=== PATIENT | male | born 1980 | race Caucasian/White ===

== ENCOUNTER 2019-06-05 06:13 | Day surgery (SDC) | payer OTHER, SELFPAY ==
[2019-05-24 11:54] VITALS: BMI 34.4
[2019-06-05] VITALS (10 sets, daily range): BP systolic 90–121; BP diastolic 60–81; PULSE 75–81; RESP 15–17; TEMP 35.9–36.3; O2SAT 90–97; BMI 32.8
[2019-06-05] MEDS: LACTATED RINGERS 1,000 ML 100 ML IV (07:30)
--- NOTE | 2019-06-05 07:48 | PM.HP.1 ---
History of Present Illness Date Patient Seen: 06/05/19 Time Patient Seen: 07:35 Chief complaint: [id number] Narrative: Pt seen and examined unchanged since recent clinic note plan for umbilical hernia repair with mesh Patient History Medical History (Updated 05/24/19 @ 12:02 by Elizabeth Sanchez RN) Diverticulosis (Acute) Nephrolithiasis (Acute) Obesity (Acute) Surgical History (Updated 05/24/19 @ 12:02 by Elizabeth Sanchez RN) History of colonoscopy (Acute) History of tonsillectomy (Acute) Social History (Updated 05/20/19 @ 14:29 by Angelia Lopez MA) marital status: household members: spouse Smoking Status: Current every day smoker alcohol intake: current substance use type: does not use Family & Social History Social History: household members spouse Tobacco & Substance use: Smoking Status Current every day smoker Smoking packs per day 1 alcohol intake current Substance Use Type does not use Meds Home Medications Medication Instructions Recorded Confirmed Type ranitidine HCl 75 mg PO PRN PRN #0 02/01/17 06/05/19 History Allergies Allergy/AdvReac Type Severity Reaction Status Date / Time Penicillins [PENICILLINS] Allergy Intermediate Verified 06/05/19 07:12 Exam Vital Signs (past 8 hours): - 06/05/19 07:19 Temperature 97.2 F L Pulse Rate 77 Respiratory Rate 15 Blood Pressure 119/81 Pulse Oximetry 96 Oxygen Delivery Method Room Air
[2019-06-05] MEDS: CEFAZOLIN 2 GM/100 ML FROZ.PIGGY IV (07:50)
--- NOTE | 2019-06-05 08:08 | SUR.OPER ---
Supine on padded OR bed, head on pillow, arms secured on padded arm boards at <90 degrees abduction, legs uncrossed, safety belt at thigh, tape over blanket over lower legs.
[2019-06-05] MEDS: BUPIVACAINE 0.25% W/ EPI 30 ML VIAL INJ (08:12)
[2019-06-05] MEDS: VANCOMYCIN 1,000 MG VIAL 1000 MG TOP (08:14)
--- NOTE | 2019-06-05 09:01 | SUR.PHASEI ---
Recieved pt, oral airway in, 02 added via nasal cannula
--- NOTE | 2019-06-05 09:04 | SUR.PHASEI ---
IV open for low BP
[2019-06-05] MEDS: fentaNYL 100 MCG/2 ML INJ 50 MCG IV ×2 (09:18→09:30)
--- NOTE | 2019-06-05 09:28 | P.OP_ITS ---
Operative Date/Time/Diagnoses Date of procedure: 06/05/19 Time of procedure: 09:21 Pre-op diagnosis: Umbilical hernia Post-op diagnosis: same Procedure & Clinicians Procedure: Open umbilical hernia repair with preperitoneal mesh placement Same procedure as scheduled: Yes Surgeon: Eugene Serrano Click Yes if Unassisted: Yes Anesthesia Type: General Operative Notes Findings: Herniated preperitoneal fat with a 1.5 x 1.5 cm umbilical defect Closure Type: primary Specimen(s): none sent Prosthetic devices, grafts, tissues, transplants, or devices: Atrial umbilical mesh Estimated Blood Loss (mL): 5 Procedure in detail: The patient was brought to the operating room he was given a general anesthetic with LMA without difficulty. He was prepped and draped in usual sterile fashion time-out was completed. A small curvilinear incision was performed on the superior umbilical crown. This carried through the skin down to the subcutaneous tissue. The umbilical stalk was circumferentially dissected around and then detached from the deep fascia. Quite obviously there was a c ollection of herniated preperitoneal fat. The fascial ring was identified and skeletonized. The herniated fat was then reduced through the defect. The edges of the fascial ring were then grasped with Allis clamps and elevated. In the preperitoneal plane I created a pocket just deep to the posterior fashion with a combination of finger dissection as well as Bovie dissection of several fibrous strands. I ensured the pocket was well-developed several cm in all directions. A Ray-Gabriele was then placed in the pocket left for 30 seconds and then removed. There was no significant blood in the Ray-Gabriele confirming hemostasis within the dissection pocket. At this point a 1.7 x 1.7 inch piece of polypropylene mesh was placed into the pocket I ensured that it was well approximating the posterior fact with no wrinkles. Prior to placement was soaked in vancomycin solution. I then proceeded to close the umbilical defect using interrupted 0 PDS suture in a horizontal fashion. The tails of the umbilical hernia mesh were incorporated into several the stitches to prevent migration. At this point the umbilical stalk was reapproximated over the repair using Vicryl stitch. Local anesthetic was infiltrated into the tissues. Skin was closed using a deep dermal layer of 2 0 Vicryl and monofilament absorbable suture in a subcuticular layer. Skin glue was applied. Patient was extubated and brought to PACU without incident Complications: none Condition: stable Disposition: PACU Plan for aftercare: PACU then home
== END 2019-06-05 10:23 | disposition home or self-care (01) ==
PROVIDERS: PCP Family Medicine; Visit Provider Surgery
PROC: (CPT 49585; principal; 2019-06-05 07:45)
DX: K42.9 Umbilical hernia without obstruction or gangrene (principal); F17.210 Nicotine dependence, cigarettes, uncomplicated; E66.9 Obesity, unspecified
CPT/HCPCS: 49585; C1781; J0690; J1100; J1885; J2250; J2405; J2704; J3010

== ENCOUNTER → 2020-04-07 09:49 | Outpatient (CLI) | payer OTHER, SELFPAY ==
--- NOTE | 2020-04-07 | DI.RAD.S_ITS ---
PROCEDURE: XR KNEE LT 3V INDICATIONS: Left knee pain TECHNIQUE: 3 views of the knee were acquired. COMPARISON: None. FINDINGS: Bones: No fractures or dislocations. No suspicious bony lesions. Soft tissues: No joint effusion. No suspicious soft tissue calcifications. IMPRESSION: Source of left knee pain is not seen. Dictated by: Sarath Wyatt M.D. on 04/07/2020 at 10:18 Approved by: Sarath Wyatt M.D. on 04/07/2020 at 10:33
== END ==
PROVIDERS: PCP Family Medicine; Referring Provider Family Medicine; Visit Provider Family Medicine
DX: M25.562 Pain in left knee (principal)
CPT/HCPCS: 73562

== ENCOUNTER 2020-06-18 14:58 | Emergency (ER) | payer OTHER, SELFPAY ==
[2020-06-18 15:08] VITALS: BP 142/67; PULSE 74; RESP 16; TEMP 36.4; O2SAT 98; BMI 34.4
--- NOTE | 2020-06-18 15:18 | DI.CT.S_ITS ---
PROCEDURE: CT HEAD/BRAIN WO CON INDICATIONS: Sudden onset of dizziness TECHNIQUE: Noncontrast 4.5 mm thick angled axial sections acquired from the foramen magnum to the vertex, with coronal and sagittal reformats. For radiation dose reduction, the following was used: automated exposure control, adjustment of mA and/or kV according to patient size. COMPARISON: None. FINDINGS: Image quality: Excellent. CSF spaces: Basal cisterns are patent. No extra-axial fluid collections. Ventricles are normal in size and shape. Brain: No midline shift. No intracranial masses or hemorrhage. Bragg-white matter interface is normal. Skull and face: Calvarium and visualized facial bones are intact, without suspicious lesions. Sinuses: Visualized sinuses and mastoids are clear. IMPRESSION: Normal head CT exam. Dictated by: Gisselle Arango M.D. on 06/18/2020 at 15:32 Approved by: Gisselle Arango M.D. on 06/18/2020 at 15:33
[2020-06-18 16:19] LABS: Alanine Aminotransferase 32 IU/L (<50); Albumin 4.3 g/dL (3.5-5.0); Albumin Globulin Ratio 1.5 (1.0-2.8); Alkaline Phosphatase 85 U/L (38-126); Aspartate Aminotransferase 35 IU/L (17-59); BUN Creatinine Ratio 11.1 (6-22); Bilirubin Total 0.4 mg/dL (0.2-1.3); Blood Urea Nitrogen 8 mg/dL (9-20); Calcium 9.1 mg/dL (8.4-10.2); Carbon Dioxide 24 mmol/L (22-32); Chloride 105 mmol/L (98-107); Estimated Glomerular Filt Rate > 60.0 mL/min (>60); Globulin 2.9 g/dL (1.7-4.1); Glucose 90 mg/dL (70-100); HEMOLYSIS 20 (0-50); Potassium 3.8 mmol/L (3.4-5.1); Sodium 137 mmol/L (137-145); Total Protein 7.2 g/dL (6.3-8.2)
[2020-06-18 16:28] LABS: Troponin I < 0.012 ng/mL (0.01-0.034)
[2020-06-18 16:54] LABS: Add Manual Diff / Slide Review NO; Basophils Absolute Auto 200 /uL (0-100); Basophils Percent Auto 1.4 % (0-2); Eosinophils Absolute Auto 200 /uL (0-450); Eosinophils Percent Auto 1.3 % (2-4); Hematocrit 44.8 % (41-53); Hemoglobin 15.4 g/dL (13.5-17.5); Lymphocytes Absolute Auto 3700 /uL (1100-4500); Mean Corpuscular HGB Conc 34.3 % (30-36); Mean Corpuscular Hemoglobin 31.4 PG (26-34); Mean Corpuscular Volume 91.4 fL (80-100); Monocytes Absolute Auto 800 /uL (0-900); Monocytes Percent Auto 6.5 % (3-14); Neutrophils Absolute Auto 7400 /uL (1500-7000); Neutrophils Percent Auto 60.8 % (50-75); Platelet Count 229 X10^3/uL (150-400); White Blood Cell Count 12.2 X10^3/uL (4.5-11.0)
[2020-06-18 17:48] VITALS: BP 124/71; PULSE 68; RESP 16; O2SAT 97
[2020-06-18] MEDS: MECLIZINE HCL 12.5 MG TABLET 50 MG PO (18:09)
--- NOTE | 2020-06-18 18:52 | ED_ITS ---
HPI - Dizziness <NENA Alvarez-BC - Last Filed: 06/18/20 18:59> General Chief Complaint: Dizziness Stated Complaint: dizzy and lightheaded Time Seen by Provider: 06/18/20 17:28 Source: patient Mode of arrival: Ambulatory Limitations: no limitations History of Present Illness HPI Narrative: The patient is a 39-year-old male current smoker who denies pertinent medical history presents with a chief complaint of sudden onset of dizziness this afternoon approximately 13 30. He states he was at work. He states that he has a spinning sensation whenever he moves his head or changes position. He denies any dizziness or spinning sensation when he is lying still. Denies any ear pain. Denies any fever, nausea vomiting or diarrhea. Denies any abdominal pain chest pain shortness of breath or cough. He has not taken anything to feel better. He denies any falls or trauma. Related Data Home Medications Medication Instructions Recorded Confirmed ranitidine HCl 75 mg PO PRN PRN #0 02/01/17 06/18/19 Previous Rx's Medication Instructions Recorded acetaminophen 1,000 mg PO Q6H #30 cap 06/05/19 oxycodone See Rx Instructions .ROUTE 06/05/19 .COMPLEX PRN #10 tab polyethylene glycol 3350 [Miralax] 17 gram PO DAILY #10 each 06/05/19 meclizine 25 mg PO TID PRN #14 tab 06/18/20 Allergies Allergy/AdvReac Type Severity Reaction Status Date / Time Penicillins [PENICILLINS] Allergy Intermediate Verified 06/18/20 15:12 Review of Systems <JESSENIA Alvarez - Last Filed: 06/18/20 18:59> Review of Systems Narrative: GENERAL: Denies chills, fatigue, malaise, fever, sweats. HEENT: Denies sinus pain, ear pain, sore throat, difficulty swallowing, dizziness. RESPIRATORY: Denies dyspnea, cough, wheezing, hemoptysis, sputum. CARDIOVASCULAR: Denies chest pain, palpitations, orthopnea, edema, GASTROINTESTINAL: Denies nausea, vomiting, abdominal pain, diarrhea, constipation, melena. : Denies dysuria, frequency, incontinence, hematuria, urinary retention. MUSCULOSKELETAL: denies weakness, joint pain, or bony pain SKIN: Denies rash, skin lesions, or other NEUROLOGIC: See HPI PSYCHIATRIC: No concerning psychosocial issues. 12 point review of systems is negative except for those stated above Patient History <YESSICA Alvarez - Last Filed: 06/18/20 18:59> Medical History (Updated 06/18/20 @ 18:43 by YESSICA Alvarez) Diverticulosis (Acute) Nephrolithiasis (Acute) Obesity (Acute) Surgical History (Updated 05/24/19 @ 12:02 by Elizabeth Sanchez RN) History of colonoscopy (Acute) History of tonsillectomy (Acute) Social History (Updated 05/20/19 @ 14:29 by Angelia Lopez MA) marital status: household members: spouse Smoking Status: Current every day smoker alcohol intake: current substance use type: does not use Smoking Status: Current every day smoker Substance Use Type: does not use Exam <YESSICA Alvarez - Last Filed: 06/18/20 18:59> Narrative Exam Narrative: GENERAL: This is a well-nourished, well-developed patient, no acute distress HEAD: Atraumatic. Normocephalic. No temporal or scalp tenderness. EYES: Pupils equal round and reactive. Extraocular motions intact. No scleral icterus. No injection or drainage. Slight horizontal nystagmus bilaterally. ENT: Nose without bleeding, purulent drainage or septal hematoma. Throat without erythema, tonsillar hypertrophy or exudate. Uvula midline. Airway patent. NECK: Trachea midline. No JVD or lymphadenopathy. Supple, nontender, no meningeal signs. CARDIOVASCULAR: Regular rate and rhythm RESPIRATORY: Clear to auscultation. Breath sounds equal bilaterally. No wheezes, rales, or rhonchi. No cough. No increased respiratory effort. No accessory muscle use. GASTROINTESTINAL: Abdomen soft, non-tender, nondistended. No hepato- splenomegaly, or palpable masses. No guarding. EXTREMITIES: No clubbing, cyanosis, or edema. No joint tenderness, effusion, or edema noted. BACK: Nontender without deformity or crepitance. No flank tenderness. NEURO: AOx3. NIH 0. SKIN: No rash or erythema. Initial Vital Signs Initial Vital Signs: Vital Signs Temperature 97.6 F 06/18/20 15:08 Pulse Rate 74 06/18/20 15:08 Respiratory Rate 16 06/18/20 15:08 Blood Pressure 142/67 H 06/18/20 15:08 Pulse Oximetry 98 06/18/20 15:08 <Vincenzo Martin MD - Last Filed: 06/19/20 08:05> Initial Vital Signs Initial Vital Signs: Vital Signs Temperature 97.6 F 06/18/20 15:08 Pulse Rate 74 06/18/20 15:08 Respiratory Rate 16 06/18/20 15:08 Blood Pressure 142/67 H 06/18/20 15:08 Pulse Oximetry 98 06/18/20 15:08 Scores <YESSICA Alvarez - Last Filed: 06/18/20 18:59> GCS Ángela coma scale eye opening: Spontaneous [place] coma scale verbal response: Orientated [place] coma scale motor response: Obey commands [place] coma scale total score: 15 NIH Stroke Scale Level of Conciousness: Alert, keenly responsive Ask month/age: Answers both questions correctly. Open/close eyes, close hand: Performs both tasks correctly Best gaze horizontal: Normal Visual gacria: No visual loss Facial palsy: Normal symetrical movement Left arm drift: No drift for full 10 sec Right arm drift: No drift for full 10 sec Left leg drift: No drift for full 10 sec Right leg drift: No drift for full 10 sec Limb ataxia: Absent Sensory on face/arms/legs: Normal, no sensory loss Best language: No aphasia, normal Dysarthria: Normal Extinction or inattention: No abnormality Total NIH Stroke scale score: 0 Course <YESSICA Alvarez - Last Filed: 06/18/20 18:59> Orders Ordered: Discontinued Medications Meclizine HCl (Antivert) 50 mg PO NOW ONE Stop: 06/18/20 17:50 Last Admin: 06/18/20 18:09 Dose: 50 mg Documented by: MUKUL Vital Signs Vital signs: Vital Signs - 8 hr 06/18/20 15:08 06/18/20 17:48 Temperature 97.6 F Pulse Rate 74 68 Respiratory Rate 16 16 Blood Pressure 142/67 H 124/71 Pulse Oximetry 98 97 <Vincenzo Martin MD - Last Filed: 06/19/20 08:05> Orders Ordered: Discontinued Medications Meclizine HCl (Antivert) 50 mg PO NOW ONE Stop: 06/18/20 17:50 Last Admin: 06/18/20 18:09 Dose: 50 mg Documented by: MUKUL Vital Signs Vital signs: Vital Signs - 8 hr 06/18/20 15:08 06/18/20 17:48 Temperature 97.6 F Pulse Rate 74 68 Respiratory Rate 16 16 Blood Pressure 142/67 H 124/71 Pulse Oximetry 98 97 MDM - Dizziness <Angela McgillKRISTINAP-BC - Last Filed: 06/18/20 18:59> Lab Data Result diagrams: 06/18/20 15:46 06/18/20 15:50 Labs: Lab Results 06/18/20 06/18/20 Range/Units 15:46 15:50 WBC 12.2 H (4.5-11.0) X10^3/uL RBC 4.90 (4.5-5.9) X10^6/uL Hgb 15.4 (13.5-17.5) g/dL Hct 44.8 (41-53) % MCV 91.4 (80-100) fL MCH 31.4 (26-34) PG MCHC 34.3 (30-36) % RDW 13.0 (11.6-14.8) % Plt Count 229 (150-400) X10^3/uL Neut % (Auto) 60.8 (50-75) % Lymph % (Auto) 30.0 (25-40) % Garden % (Auto) 6.5 (3-14) % Eos % (Auto) 1.3 L (2-4) % Baso % (Auto) 1.4 (0-2) % Neut # (Auto) 7400 H (9504-3104) /uL Lymph # (Auto) 3700 (0220-6015) /uL Garden # (Auto) 800 (0-900) /uL Eos # (Auto) 200 (0-450) /uL Baso # (Auto) 200 H (0-100) /uL Sodium 137 (137-145) mmol/L Potassium 3.8 (3.4-5.1) mmol/L Chloride 105 (98-107) mmol/L Carbon Dioxide 24 (22-32) mmol/L BUN 8 L (9-20) mg/dL Creatinine 0.72 (0.66-1.25) mg/dL Estimated GFR > 60.0 (>60) mL/min BUN/Creatinine Ratio 11.1 (6-22) Glucose 90 (70-100) mg/dL Calcium 9.1 (8.4-10.2) mg/dL Magnesium 2.0 (1.6-2.3) mg/dL Total Bilirubin 0.4 (0.2-1.3) mg/dL AST 35 (17-59) IU/L ALT 32 (<50) IU/L Alkaline Phosphatase 85 (38-126) U/L Troponin I < 0.012 (0.01-0.034) ng/mL Total Protein 7.2 (6.3-8.2) g/dL Albumin 4.3 (3.5-5.0) g/dL Globulin 2.9 (1.7-4.1) g/dL Albumin/Globulin Ratio 1.5 (1.0-2.8) Urine Dip Bedside Urine Glucose 100 mg/dl Bedside Urine Bilirubin - Negative Bedside Urine Ketone - Negative Urine Specific [place] 1.010 Bedside Urine Occult Blood - Negative Bedside Urine pH 7.0 Bedside Urine Protein - Negative Bedside Urine Urobilinogen - Negative Bedside Urine Nitrite - Negative Bedside Urine Leukocytes - Negative Esterase Imaging Data CT scan - head: Radiologist's Impression: [address] [place] [address] CT Scan Report Signed Patient: Alex Wagoner#: [id number] : 1980Acct:[id number] Age/Sex: 39 / MDate of Service: 06/18/20 Loc: ED Accession Number: [id number] Procedure: CT head/brain wo con Ordering Provider: Angela Mcgill [facility] PROCEDURE: CT HEAD/BRAIN WO CON INDICATIONS: Sudden onset of dizziness TECHNIQUE: Noncontrast 4.5 mm thick angled axial sections acquired from the foramen magnum to the vertex, with coronal and sagittal reformats. For radiation dose reduction, the following was used: automated exposure control, adjustment of mA and/or kV according to patient size. COMPARISON: None. FINDINGS: Image quality: Excellent. CSF spaces: Basal cisterns are patent. No extra-axial fluid collections. Ventricles are normal in size and shape. Brain: No midline shift. No intracranial masses or hemorrhage. Bragg-white matter interface is normal. Skull and face: Calvarium and visualized facial bones are intact, without suspicious lesions. Sinuses: Visualized sinuses and mastoids are clear. IMPRESSION: Normal head CT exam. Dictated by: Gisselle Arango M.D. on 06/18/2020 at 15:32 Approved by: Gisselle Arango M.D. on 06/18/2020 at 15:33 [facility] Narrative Medical decision making narrative: The patient is a 39-year-old male who presents with a chief complaint of sudden onset of spinning sensation when he moves his head this afternoon early. He has a GCS 15, NIH is 0, normal head CT. His labs are grossly normal. Given his exam and history, this correlates with vertigo. He did feel slightly improved after a dose of meclizine so I sent a minute prescription. Discussed at length the importance of following up with primary care provider, as well as come back to the emergency department for any acute concerns such as chest pain, shortness of breath, concern of heart attack or stroke. Patient has no questions or concerns upon discharge and states understanding return precautions as well as follow-up care. Was discharged home with . <Vincenzo Martin MD - Last Filed: 06/19/20 08:05> Lab Data Labs: Lab Results 06/18/20 06/18/20 Range/Units 15:46 15:50 WBC 12.2 H (4.5-11.0) X10^3/uL RBC 4.90 (4.5-5.9) X10^6/uL Hgb 15.4 (13.5-17.5) g/dL Hct 44.8 (41-53) % MCV 91.4 (80-100) fL MCH 31.4 (26-34) PG MCHC 34.3 (30-36) % RDW 13.0 (11.6-14.8) % Plt Count 229 (150-400) X10^3/uL Neut % (Auto) 60.8 (50-75) % Lymph % (Auto) 30.0 (25-40) % Garden % (Auto) 6.5 (3-14) % Eos % (Auto) 1.3 L (2-4) % Baso % (Auto) 1.4 (0-2) % Neut # (Auto) 7400 H (7537-8830) /uL Lymph # (Auto) 3700 (6997-5020) /uL Garden # (Auto) 800 (0-900) /uL Eos # (Auto) 200 (0-450) /uL Baso # (Auto) 200 H (0-100) /uL Sodium 137 (137-145) mmol/L Potassium 3.8 (3.4-5.1) mmol/L Chloride 105 (98-107) mmol/L Carbon Dioxide 24 (22-32) mmol/L BUN 8 L (9-20) mg/dL Creatinine 0.72 (0.66-1.25) mg/dL Estimated GFR > 60.0 (>60) mL/min BUN/Creatinine Ratio 11.1 (6-22) Glucose 90 (70-100) mg/dL Calcium 9.1 (8.4-10.2) mg/dL Magnesium 2.0 (1.6-2.3) mg/dL Total Bilirubin 0.4 (0.2-1.3) mg/dL AST 35 (17-59) IU/L ALT 32 (<50) IU/L Alkaline Phosphatase 85 (38-126) U/L Troponin I < 0.012 (0.01-0.034) ng/mL Total Protein 7.2 (6.3-8.2) g/dL Albumin 4.3 (3.5-5.0) g/dL Globulin 2.9 (1.7-4.1) g/dL Albumin/Globulin Ratio 1.5 (1.0-2.8) Urine Dip Bedside Urine Glucose 100 mg/dl Bedside Urine Bilirubin - Negative Bedside Urine Ketone - Negative Urine Specific [place] 1.010 Bedside Urine Occult Blood - Negative Bedside Urine pH 7.0 Bedside Urine Protein - Negative Bedside Urine Urobilinogen - Negative Bedside Urine Nitrite - Negative Bedside Urine Leukocytes - Negative Esterase Discharge Plan Departure Patient Disposition: Home Clinical Impression: Vertigo Discharge Date/Time: 06/18/20 19:00 Instructions: DI for Vertigo Activity Restrictions/Additional Instructions: Thank you for trusting us with your care today Your labs came back well, your head CT came back well Please follow-up with primary care provider in the next few days I sent a prescription of meclizine to [facility]. I have given you a work note case you needed. Please stay home, push fluids and rest Please come back to emergency department for any acute concerns Prescriptions: New meclizine 25 mg tablet 25 mg PO TID PRN (Reason: dizziness) Qty: 14 RF: 0 No Action ranitidine HCl 75 MG tablet 75 mg PO PRN PRN (Reason: Indigestion) Qty: 0 RF: 0 acetaminophen 500 mg capsule 1,000 mg PO Q6H Qty: 30 RF: 0 oxycodone 5 mg tablet See Rx Instructions .ROUTE .COMPLEX PRN (Reason: pain) Qty: 10 RF: 0 polyethylene glycol 3350 [Miralax] 17 gram powder in packet 17 gram PO DAILY Qty: 10 RF: 0 Referrals: Susana Wilson MD [Primary Care Provider] - Stand Alone Forms: Work Release Note
== END 2020-06-18 19:00 | disposition home or self-care (01) ==
PROVIDERS: Emergency Provider Nurse Practitioner Family; PCP Family Medicine
DX: R42 Dizziness and giddiness (principal); R07.9 Chest pain, unspecified
CPT/HCPCS: 36415; 70450; 80053; 81003; 83735; 84484; 85025; 93005; 99284

== ENCOUNTER 2020-06-25 14:10 | Emergency (ER) | payer OTHER, SELFPAY ==
[2020-06-25] VITALS (7 sets, daily range): BP systolic 119–135; BP diastolic 73–93; PULSE 61–81; RESP 18–22; TEMP 36.5; O2SAT 96–98; BMI 34.4
--- NOTE | 2020-06-25 14:32 | ED.DIZZY ---
HPI - Dizziness <Susana Haque PA-C - Last Filed: 06/25/20 23:27> General Chief Complaint: Dizziness Stated Complaint: dizzy, loss of balance Time Seen by Provider: 06/25/20 14:32 Source: patient and family Mode of arrival: Wheelchair Limitations: no limitations History of Present Illness HPI Narrative: This is a very uncomfortable appearing 39-year-old with a recent emergency department visit for vertigo who presents to the emergency department today complaining of dizziness and difficulty walking as well as a mild headache. He had been taking meclizine and doing well after his visit about a week ago, with some occasional spells of dizziness returning, yesterday he spent most of the day sitting in the car while his child was in an appointment with his , today when he woke up in the morning he was having worsening dizziness again, he felt like his vision was affected and has difficulty focusing on things, he has a mild headache today in the back of his head. He called his primary care and they advised him to double his dose and take 50 of meclizine, however this did not relieve his symptoms so he came to the emergency department. He has not sustained any recent trauma, he has not had any new symptoms since his symptoms began a week ago. He did have a follow-up appointment with his primary care doctor on Monday, and they noted that he appeared to have an ear infection on the right and prescribed him antibiotics. They also noted that he had elevated white count. His notes that his mother was diagnosed with brain cancer in her 40s and their daughter currently has brain cancer and [facility] He denies eye pain, severe headache, trauma, fever, chills, N/V/D, new or worsening neck or back pain, unilateral weakness or any other symptoms. MD complaint: dizziness and difficulty walking Onset (ago): week(s) (1) Timing: gradual onset Description: room spinning and difficulty walking (due to dizziness) History of similar episodes: Yes History of trauma: No Severity: similar to previous episodes Relieving factors: remaining still Exacerbating factors: movement and position Associated symptoms: denies other symptoms, vision changes (hard to focus on objects) and nausea Related Data Home Medications Medication Instructions Recorded Confirmed ranitidine HCl 75 mg PO PRN PRN #0 02/01/17 06/18/19 Previous Rx's Medication Instructions Recorded acetaminophen 1,000 mg PO Q6H #30 cap 06/05/19 oxycodone See Rx Instructions .ROUTE 06/05/19 .COMPLEX PRN #10 tab polyethylene glycol 3350 [Miralax] 17 gram PO DAILY #10 each 06/05/19 meclizine 25 mg PO TID PRN #14 tab 06/18/20 ondansetron HCl [Zofran] 4 mg PO Q6H #14 tab 06/25/20 Allergies Allergy/AdvReac Type Severity Reaction Status Date / Time Penicillins [PENICILLINS] Allergy Intermediate Verified 06/18/20 15:12 Review of Systems <Susana Haque PA-C - Last Filed: 06/25/20 23:27> Review of Systems Narrative: GENERAL: Denies chills, fatigue, malaise, fever, sweats. HEENT: Denies sinus pain, ear pain, sore throat, difficulty swallowing, positive for dizziness. RESPIRATORY: Denies dyspnea, cough, wheezing, hemoptysis, sputum. CARDIOVASCULAR: Denies chest pain, palpitations, orthopnea, edema, GASTROINTESTINAL: Positive for nausea, negative for vomiting, abdominal pain, diarrhea, constipation, melena. : Denies dysuria, frequency, incontinence, hematuria, urinary retention. MUSCULOSKELETAL: denies weakness, joint pain, or bony pain; positive for chronic neck and back pain SKIN: Denies rash, skin lesions, or other NEUROLOGIC: Denies weakness, positive for mild headache, negative for numbness, change in speech, confusion, seizures, incoordination. PSYCHIATRIC: No concerning psychosocial issues. 12 point review of systems is negative except for those stated above ROS Unobtainable: All systems reviewed & are unremarkable except as noted in HPI and below Patient History <Susana Haque PA-C - Last Filed: 06/25/20 23:27> Medical History Diverticulosis (Acute) Nephrolithiasis (Acute) Obesity (Acute) Surgical History History of colonoscopy (Acute) History of tonsillectomy (Acute) Social History marital status: household members: spouse Smoking Status: Current every day smoker alcohol intake: current substance use type: does not use Smoking Status: Current every day smoker Substance Use Type: does not use Exam <Susana Haque PA-C - Last Filed: 06/25/20 23:27> Narrative Exam Narrative: GENERAL: 39 year old patient appears stated age. Well-nourished, well-developed patient, in mild distress. HEAD: Atraumatic. Normocephalic. EYES: Pupils equal round and reactive, consensual reflex intact. Extraocular motions intact, there is significant slow beat nystagmus horizontal gaze on the right and vertical gaze on the right. No scleral icterus. No injection or drainage. ENT: Nose without bleeding, purulent drainage. Throat without erythema, tonsillar hypertrophy or exudate. Airway patent. External ear canals are normal in appearance bilaterally without drainage or erythema, the left tympanic number membrane is normal in appearance, the right tympanic membrane is injected and moderately erythematous. There is no effusion. NECK: Trachea midline. Non tender CARDIOVASCULAR: Regular rate and rhythm without murmurs, gallops, or rubs. RESPIRATORY: Clear to auscultation. Breath sounds equal bilaterally. No wheezes, rales, or rhonchi. GASTROINTESTINAL: Abdomen soft, non-tender, nondistended. EXTREMITIES: No edema or joint tenderness. BACK: Nontender without deformity or crepitance. No flank tenderness. NEURO: AOx3. Cranial nerves are intact. Coordination is intact but [id number] is slow. Heel to dodd is normal, no arm drift. SKIN: No rash or erythema of visible areas Initial Vital Signs Initial Vital Signs: Vital Signs Temperature 97.7 F 06/25/20 14:22 Pulse Rate 69 06/25/20 14:22 Respiratory Rate 06/25/20 14:22 Blood Pressure 126/75 06/25/20 14:22 Pulse Oximetry 96 06/25/20 14:22 <Satish Hernandez MD - Last Filed: 07/06/20 17:54> Initial Vital Signs Initial Vital Signs: Vital Signs Temperature 97.7 F 06/25/20 14:22 Pulse Rate 69 06/25/20 14:22 Respiratory Rate 06/25/20 14:22 Blood Pressure 126/75 06/25/20 14:22 Pulse Oximetry 96 06/25/20 14:22 Scores <Susana Haque PA-C - Last Filed: 06/25/20 23:27> GCS [place] coma scale eye opening: Spontaneous Ángela coma scale verbal response: Orientated Ángela coma scale motor response: Obey commands Ángela coma scale total score: 15 NIH Stroke Scale Level of Conciousness: Alert, keenly responsive Ask month/age: Answers both questions correctly. Open/close eyes, close hand: Performs both tasks correctly Best gaze horizontal: Normal Visual garcia: No visual loss Facial palsy: Normal symetrical movement Left arm drift: No drift for full 10 sec Right arm drift: No drift for full 10 sec Left leg drift: No drift for full 10 sec Right leg drift: No drift for full 10 sec Limb ataxia: Absent Sensory on face/arms/legs: Normal, no sensory loss Best language: No aphasia, normal Dysarthria: Normal Extinction or inattention: No abnormality Total NIH Stroke scale score: 0 Course <Susana Haque PA-C - Last Filed: 06/25/20 23:27> Course Course Narrative: Did speak with Dr. Moore, ED attending about this patient in the fact that he had been here about a week ago and had a head CT that was negative at that time. Discussed the elevated white count the fact that he just started antibiotics for possible ear infection, as well as details of his physical exam including his vertical and horizontal nystagmus on right. Dr. Hernandez advised to do a chest x-ray, check urine, check rapid strep, COVID, Monospot. 17:25 Orders Ordered: Discontinued Medications Sodium Chloride (Normal Saline 0.9%) 1,000 mls @ 1,000 mls/hr IV BOLUS ONE Stop: 06/25/20 17:28 Last Infusion: 06/25/20 18:03 Dose: 0 mls/hr Documented by: Admin: 06/25/20 16:32 Dose: 1,000 mls/hr Documented by: MAMTA Ondansetron HCl (Zofran) 4 mg IV NOW ONE Stop: 06/25/20 15:18 Last Admin: 06/25/20 15:27 Dose: 4 mg Documented by: MAMTA Prochlorperazine (Compazine) 5 mg IV NOW ONE Stop: 06/25/20 15:48 Last Admin: 06/25/20 16:02 Dose: 5 mg Documented by: MAMTA Vital Signs Vital signs: Vital Signs - 8 hr 06/25/20 15:26 06/25/20 16:02 06/25/20 17:05 Pulse Rate 67 61 Pulse Rate [Orthostatic Lying] 69 Pulse Rate [Orthostatic Sitting] 71 Pulse Rate [Orthostatic Standing] 81 Respiratory Rate 20 Blood Pressure 123/79 Blood Pressure [Orthostatic Lying] 126/80 Blood Pressure [Orthostatic Sitting] 130/87 Blood Pressure [Orthostatic Standing] 135/93 H Pulse Oximetry 96 06/25/20 18:05 06/25/20 18:29 06/25/20 18:30 Pulse Rate 61 73 Pulse Rate [Orthostatic Lying] Pulse Rate [Orthostatic Sitting] Pulse Rate [Orthostatic Standing] Respiratory Rate 18 22 Blood Pressure 119/73 123/76 Blood Pressure [Orthostatic Lying] Blood Pressure [Orthostatic Sitting] Blood Pressure [Orthostatic Standing] Pulse Oximetry 98 96 <Satish Hernandez MD - Last Filed: 07/06/20 17:54> Orders Ordered: Discontinued Medications Sodium Chloride (Normal Saline 0.9%) 1,000 mls @ 1,000 mls/hr IV BOLUS ONE Stop: 06/25/20 17:28 Last Infusion: 06/25/20 18:03 Dose: 0 mls/hr Documented by: Admin: 06/25/20 16:32 Dose: 1,000 mls/hr Documented by: MAMTA Ondansetron HCl (Zofran) 4 mg IV NOW ONE Stop: 06/25/20 15:18 Last Admin: 06/25/20 15:27 Dose: 4 mg Documented by: MAMTA Prochlorperazine (Compazine) 5 mg IV NOW ONE Stop: 06/25/20 15:48 Last Admin: 06/25/20 16:02 Dose: 5 mg Documented by: MAMTA Vital Signs Vital signs: Vital Signs - 8 hr 06/25/20 15:26 06/25/20 16:02 06/25/20 17:05 Pulse Rate 67 61 Pulse Rate [Orthostatic Lying] 69 Pulse Rate [Orthostatic Sitting] 71 Pulse Rate [Orthostatic Standing] 81 Respiratory Rate 20 Blood Pressure 123/79 Blood Pressure [Orthostatic Lying] 126/80 Blood Pressure [Orthostatic Sitting] 130/87 Blood Pressure [Orthostatic Standing] 135/93 H Pulse Oximetry 96 06/25/20 18:05 06/25/20 18:29 06/25/20 18:30 Pulse Rate 61 73 Pulse Rate [Orthostatic Lying] Pulse Rate [Orthostatic Sitting] Pulse Rate [Orthostatic Standing] Respiratory Rate 18 22 Blood Pressure 119/73 123/76 Blood Pressure [Orthostatic Lying] Blood Pressure [Orthostatic Sitting] Blood Pressure [Orthostatic Standing] Pulse Oximetry 98 96 MDM - Dizziness <Susana Haque PA-C - Last Filed: 06/25/20 23:27> Differential Diagnosis Differential diagnosis: Likely benign paroxysmal positional vertigo, orthostatic hypotension, vertebral basilar insufficiency, cerebrovascular accident, acute vestibular neuronitis and other (viral illness, otitis media, brain mass) Medical Records Attestation: I reviewed the patient's medical records. Lab Data Attestation: I reviewed the patient's lab results. Result diagrams: 06/25/20 14:44 06/25/20 14:44 Labs: Lab Results 06/25/20 06/25/20 06/25/20 Range/Units 14:44 14:44 14:44 WBC 15.3 H (4.5-11.0) X10^3/uL RBC 5.09 (4.5-5.9) X10^6/uL Hgb 16.0 (13.5-17.5) g/dL Hct 46.4 (41-53) % MCV 91.1 (80-100) fL MCH 31.3 (26-34) PG MCHC 34.4 (30-36) % RDW 12.7 (11.6-14.8) % Plt Count 226 (150-400) X10^3/uL Neut % (Auto) 67.2 (50-75) % Lymph % (Auto) 27.3 (25-40) % [place] % (Auto) 4.1 (3-14) % Eos % (Auto) 0.2 L (2-4) % Baso % (Auto) 1.2 (0-2) % Neut # (Auto) 97482 H (7684-5558) /uL Lymph # (Auto) 4200 (3030-5344) /uL [place] # (Auto) 600 (0-900) /uL Eos # (Auto) 0 (0-450) /uL Baso # (Auto) 200 H (0-100) /uL ESR (0-15) MM/HR Sodium 138 (137-145) mmol/L Potassium 4.1 (3.4-5.1) mmol/L Chloride 107 (98-107) mmol/L Carbon Dioxide 24 (22-32) mmol/L BUN 9 (9-20) mg/dL Creatinine 0.65 L (0.66-1.25) mg/dL Estimated GFR > 60.0 (>60) mL/min BUN/Creatinine Ratio 13.8 (6-22) Glucose 97 (70-100) mg/dL Lactate 0.8 (0.7-2.1) mmol/L Calcium 9.4 (8.4-10.2) mg/dL TSH (0.47-4.68) uIU/mL COVID-19 PCR (Not Detected) Monoscreen (Negative) 06/25/20 06/25/20 06/25/20 Range/Units 14:44 14:44 14:44 WBC (4.5-11.0) X10^3/uL RBC (4.5-5.9) X10^6/uL Hgb (13.5-17.5) g/dL Hct (41-53) % MCV (80-100) fL MCH (26-34) PG MCHC (30-36) % RDW (11.6-14.8) % Plt Count (150-400) X10^3/uL Neut % (Auto) (50-75) % Lymph % (Auto) (25-40) % [place] % (Auto) (3-14) % Eos % (Auto) (2-4) % Baso % (Auto) (0-2) % Neut # (Auto) (6589-5237) /uL Lymph # (Auto) (4504-3426) /uL [place] # (Auto) (0-900) /uL Eos # (Auto) (0-450) /uL Baso # (Auto) (0-100) /uL ESR 5 (0-15) MM/HR Sodium (137-145) mmol/L Potassium (3.4-5.1) mmol/L Chloride (98-107) mmol/L Carbon Dioxide (22-32) mmol/L BUN (9-20) mg/dL Creatinine (0.66-1.25) mg/dL Estimated GFR (>60) mL/min BUN/Creatinine Ratio (6-22) Glucose (70-100) mg/dL Lactate (0.7-2.1) mmol/L Calcium (8.4-10.2) mg/dL TSH 1.18 (0.47-4.68) uIU/mL COVID-19 PCR (Not Detected) Monoscreen Negative (Negative) 06/25/20 Range/Units 17:37 WBC (4.5-11.0) X10^3/uL RBC (4.5-5.9) X10^6/uL Hgb (13.5-17.5) g/dL Hct (41-53) % MCV (80-100) fL MCH (26-34) PG MCHC (30-36) % RDW (11.6-14.8) % Plt Count (150-400) X10^3/uL Neut % (Auto) (50-75) % Lymph % (Auto) (25-40) % [place] % (Auto) (3-14) % Eos % (Auto) (2-4) % Baso % (Auto) (0-2) % Neut # (Auto) (0704-2042) /uL Lymph # (Auto) (0730-3178) /uL [place] # (Auto) (0-900) /uL Eos # (Auto) (0-450) /uL Baso # (Auto) (0-100) /uL ESR (0-15) MM/HR Sodium (137-145) mmol/L Potassium (3.4-5.1) mmol/L Chloride (98-107) mmol/L Carbon Dioxide (22-32) mmol/L BUN (9-20) mg/dL Creatinine (0.66-1.25) mg/dL Estimated GFR (>60) mL/min BUN/Creatinine Ratio (6-22) Glucose (70-100) mg/dL Lactate (0.7-2.1) mmol/L Calcium (8.4-10.2) mg/dL TSH (0.47-4.68) uIU/mL COVID-19 PCR Not detected (Not Detected) Monoscreen (Negative) Point of Care Testing Rapid Strep A Negative Urine Dip Bedside Urine Glucose Negative Bedside Urine Bilirubin - Negative Bedside Urine Ketone - Negative Urine Specific Piru 1.010 Bedside Urine Occult Blood - Negative Bedside Urine pH 7.0 Bedside Urine Protein - Negative Bedside Urine Urobilinogen - Negative Bedside Urine Nitrite - Negative Imaging Data Chest x-ray: Attestation: I personally reviewed and interpreted this imaging study as follows: Radiologist's Impression: [facility] [address] [place] [id number] XRay Report Signed Patient: Alex WagonerMR#: [id number] : 1980Acct:[id number] Age/Sex: 39 / MDate of Service: 06/25/20 Loc: ED Accession Number: [id number] Procedure: XR chest 2V Ordering Provider: Susana Haque P.A-C PROCEDURE: XR CHEST 2V INDICATIONS: unexplained leukocytosis, dizziness TECHNIQUE: 2 views of the chest were acquired. COMPARISON: [facility], , CHEST 2 VIEW, 08/12/2009, 21:27. FINDINGS: Surgical changes and devices: None. Lungs and pleura: Lungs are clear. No pleural effusions or pneumothorax. Mild, streaky opacities are seen at the lung bases, left worse than right. Mediastinum: Mediastinal contours are normal. Heart size is normal. Bones and chest wall: No suspicious bony abnormalities. Soft tissues appear unremarkable. IMPRESSION: Likely atelectasis is seen at the lung bases. Differential diagnosis includes mild infiltrate, however. If clinically appropriate, a short-term followup chest series (with PA and lateral views) performed in deep inspiration is suggested for further evaluation. Dictated by: Lalo Nur M.D. on 06/25/2020 at 16:46 Approved by: Lalo Nur M.D. on 06/25/2020 at 16:47 ECG Data Attestation: I personally reviewed and interpreted this ECG as follows: Interpretation: Normal sinus rhythm rate of 60 to LA interval 148 QRS 92 QT 424 P axis 35 R axis-1? T axis negative for MDM Narrative Medical decision making narrative: This is a 39-year-old the recent emergency department visit for vertigo who presented with a return of symptoms and worsening symptoms that began this morning including difficulty with balance and severe discomfort with any movement of his head or his body. This is associated with nausea. The patient's symptoms were significantly improved after Zofran and compazine in the ED. He was provided with a prescription for meclizine, Zofran. Because he had a CT 1 week ago that was unremarkable, and presents with similar symptoms today, relieved with medication, elected not to pursue further imaging at this time. I think it is likely that he has an otitis media on the right, is possible that this is affecting things and the cause of his problem, although this does not necessarily explain his white count of 15. Fairly extensive workup did not reveal any obvious source of infection. He is generally well-appearing exam was unremarkable other than his neuro exam with vertical and horizontal nystagmus on the right. He is most likely suffering from BPPV, possibly viral illness. Likely otitis media, for which he has already been prescribed antibiotics. He is advised to have close follow-up with his PCP, he is referred to ENT, given instructions for the Rolly maneuver if he chooses to pursue this. Emergency return precautions were provided, and all questions were answered. <Satish Hernandez MD - Last Filed: 07/06/20 17:54> Lab Data Labs: Lab Results 06/25/20 06/25/20 06/25/20 Range/Units 14:44 14:44 14:44 WBC 15.3 H (4.5-11.0) X10^3/uL RBC 5.09 (4.5-5.9) X10^6/uL Hgb 16.0 (13.5-17.5) g/dL Hct 46.4 (41-53) % MCV 91.1 (80-100) fL MCH 31.3 (26-34) PG MCHC 34.4 (30-36) % RDW 12.7 (11.6-14.8) % Plt Count 226 (150-400) X10^3/uL Neut % (Auto) 67.2 (50-75) % Lymph % (Auto) 27.3 (25-40) % [place] % (Auto) 4.1 (3-14) % Eos % (Auto) 0.2 L (2-4) % Baso % (Auto) 1.2 (0-2) % Neut # (Auto) 73213 H (0024-7320) /uL Lymph # (Auto) 4200 (2458-6036) /uL [place] # (Auto) 600 (0-900) /uL Eos # (Auto) 0 (0-450) /uL Baso # (Auto) 200 H (0-100) /uL ESR (0-15) MM/HR Sodium 138 (137-145) mmol/L Potassium 4.1 (3.4-5.1) mmol/L Chloride 107 (98-107) mmol/L Carbon Dioxide 24 (22-32) mmol/L BUN 9 (9-20) mg/dL Creatinine 0.65 L (0.66-1.25) mg/dL Estimated GFR > 60.0 (>60) mL/min BUN/Creatinine Ratio 13.8 (6-22) Glucose 97 (70-100) mg/dL Lactate 0.8 (0.7-2.1) mmol/L Calcium 9.4 (8.4-10.2) mg/dL TSH (0.47-4.68) uIU/mL COVID-19 PCR (Not Detected) Monoscreen (Negative) 06/25/20 06/25/20 06/25/20 Range/Units 14:44 14:44 14:44 WBC (4.5-11.0) X10^3/uL RBC (4.5-5.9) X10^6/uL Hgb (13.5-17.5) g/dL Hct (41-53) % MCV (80-100) fL MCH (26-34) PG MCHC (30-36) % RDW (11.6-14.8) % Plt Count (150-400) X10^3/uL Neut % (Auto) (50-75) % Lymph % (Auto) (25-40) % [place] % (Auto) (3-14) % Eos % (Auto) (2-4) % Baso % (Auto) (0-2) % Neut # (Auto) (6761-9990) /uL Lymph # (Auto) (2090-4113) /uL [place] # (Auto) (0-900) /uL Eos # (Auto) (0-450) /uL Baso # (Auto) (0-100) /uL ESR 5 (0-15) MM/HR Sodium (137-145) mmol/L Potassium (3.4-5.1) mmol/L Chloride (98-107) mmol/L Carbon Dioxide (22-32) mmol/L BUN (9-20) mg/dL Creatinine (0.66-1.25) mg/dL Estimated GFR (>60) mL/min BUN/Creatinine Ratio (6-22) Glucose (70-100) mg/dL Lactate (0.7-2.1) mmol/L Calcium (8.4-10.2) mg/dL TSH 1.18 (0.47-4.68) uIU/mL COVID-19 PCR (Not Detected) Monoscreen Negative (Negative) 06/25/20 Range/Units 17:37 WBC (4.5-11.0) X10^3/uL RBC (4.5-5.9) X10^6/uL Hgb (13.5-17.5) g/dL Hct (41-53) % MCV (80-100) fL MCH (26-34) PG MCHC (30-36) % RDW (11.6-14.8) % Plt Count (150-400) X10^3/uL Neut % (Auto) (50-75) % Lymph % (Auto) (25-40) % [place] % (Auto) (3-14) % Eos % (Auto) (2-4) % Baso % (Auto) (0-2) % Neut # (Auto) (6680-1880) /uL Lymph # (Auto) (1188-0009) /uL [place] # (Auto) (0-900) /uL Eos # (Auto) (0-450) /uL Baso # (Auto) (0-100) /uL ESR (0-15) MM/HR Sodium (137-145) mmol/L Potassium (3.4-5.1) mmol/L Chloride (98-107) mmol/L Carbon Dioxide (22-32) mmol/L BUN (9-20) mg/dL Creatinine (0.66-1.25) mg/dL Estimated GFR (>60) mL/min BUN/Creatinine Ratio (6-22) Glucose (70-100) mg/dL Lactate (0.7-2.1) mmol/L Calcium (8.4-10.2) mg/dL TSH (0.47-4.68) uIU/mL COVID-19 PCR Not detected (Not Detected) Monoscreen (Negative) Point of Care Testing Rapid Strep A Negative Urine Dip Bedside Urine Glucose Negative Bedside Urine Bilirubin - Negative Bedside Urine Ketone - Negative Urine Specific [place] 1.010 Bedside Urine Occult Blood - Negative Bedside Urine pH 7.0 Bedside Urine Protein - Negative Bedside Urine Urobilinogen - Negative Bedside Urine Nitrite - Negative Discharge Plan Departure Patient Disposition: Home Clinical Impression: Vertigo Discharge Date/Time: 06/25/20 18:42 Instructions: DI for Vertigo, DI for Middle Ear Infection-Adult, How to Perform Rolly Maneuver Activity Restrictions/Additional Instructions: Thank you for letting us be part of your care in the emergency department today. At this point I think that your still suffering from vertigo, and you may have an infection of your right inner ear, I do think it is important for you to continue the antibiotics as prescribed by your primary care doctor. I am giving you some additional medicine to help with nausea, and a referral to ENT as well as I am not confident that all of your symptoms could be explained by possible ear infection. There is no evidence of an emergent or life threatening illness at this time, but follow up with your doctor in 1-2 days is recommended nonetheless to continue to rule out serious underlying causes of your symptoms. Please call the office for an appointment. Please return to the Emergency Department for any worsening or persistent symptoms. You can try the Rolly maneuver if you want, sometimes this does relieve vertigo if it is caused by the crystals in your ear being out of alignment. Please refer to the discharge instructions. Please take medications as directed. Prescriptions: New ondansetron HCl [Zofran] 4 mg tablet 4 mg PO Q6H Qty: 14 RF: 0 No Action ranitidine HCl 75 MG tablet 75 mg PO PRN PRN (Reason: Indigestion) Qty: 0 RF: 0 acetaminophen 500 mg capsule 1,000 mg PO Q6H Qty: 30 RF: 0 oxycodone 5 mg tablet See Rx Instructions .ROUTE .COMPLEX PRN (Reason: pain) Qty: 10 RF: 0 polyethylene glycol 3350 [Miralax] 17 gram powder in packet 17 gram PO DAILY Qty: 10 RF: 0 meclizine 25 mg tablet 25 mg PO TID PRN (Reason: dizziness) Qty: 14 RF: 0 Referrals: Gurwinder Browne MD [Physician] - Susana Wilson MD [Primary Care Provider] - <Satish Hernandez MD - Last Filed: 07/06/20 17:54> Cosign ED Attending Cosignature Attestation: I was immediately available in the department for consultation. This documentation has been reviewed and I agree with assessment and plan. Supervised by Satish Hernandez MD
[2020-06-25 14:52] LABS: Add Manual Diff / Slide Review NO; Basophils Absolute Auto 200 /uL (0-100); Basophils Percent Auto 1.2 % (0-2); Eosinophils Absolute Auto 0 /uL (0-450); Eosinophils Percent Auto 0.2 % (2-4); Hematocrit 46.4 % (41-53); Lymphocytes Absolute Auto 4200 /uL (1100-4500); Lymphocytes Percent Auto 27.3 % (25-40); Mean Corpuscular HGB Conc 34.4 % (30-36); Mean Corpuscular Hemoglobin 31.3 PG (26-34); Mean Corpuscular Volume 91.1 fL (80-100); Monocytes Absolute Auto 600 /uL (0-900); Monocytes Percent Auto 4.1 % (3-14); Neutrophils Absolute Auto 10300 /uL (1500-7000); Neutrophils Percent Auto 67.2 % (50-75); Platelet Count 226 X10^3/uL (150-400); Red Blood Cell Count 5.09 X10^6/uL (4.5-5.9); Red Cell Distribution Width 12.7 % (11.6-14.8); White Blood Cell Count 15.3 X10^3/uL (4.5-11.0)
[2020-06-25 15:06] LABS: BUN Creatinine Ratio 13.8 (6-22); Blood Urea Nitrogen 9 mg/dL (9-20); Calcium 9.4 mg/dL (8.4-10.2); Carbon Dioxide 24 mmol/L (22-32); Chloride 107 mmol/L (98-107); Estimated Glomerular Filt Rate > 60.0 mL/min (>60); Glucose 97 mg/dL (70-100); HEMOLYSIS 16 (0-50); Potassium 4.1 mmol/L (3.4-5.1); Sodium 138 mmol/L (137-145)
[2020-06-25] MEDS: ONDANSETRON 4 MG/2 ML INJ IV (15:27)
[2020-06-25 15:39] LABS: Lactate (Lactic Acid) 0.8 mmol/L (0.7-2.1)
[2020-06-25] MEDS: PROCHLORPERAZINE 10 MG/2 ML VIAL 5 MG IV (16:02)
[2020-06-25] MEDS: SODIUM CHLORIDE 0.9% 1,000 ML 1000 ML IV (16:32)
--- NOTE | 2020-06-25 17:19 | DI.RAD.S_ITS ---
PROCEDURE: XR CHEST 2V INDICATIONS: unexplained leukocytosis, dizziness TECHNIQUE: 2 views of the chest were acquired. COMPARISON: [facility], , CHEST 2 VIEW, 08/12/2009, 21:27. FINDINGS: Surgical changes and devices: None. Lungs and pleura: Lungs are clear. No pleural effusions or pneumothorax. Mild, streaky opacities are seen at the lung bases, left worse than right. Mediastinum: Mediastinal contours are normal. Heart size is normal. Bones and chest wall: No suspicious bony abnormalities. Soft tissues appear unremarkable. IMPRESSION: Likely atelectasis is seen at the lung bases. Differential diagnosis includes mild infiltrate, however. If clinically appropriate, a short-term followup chest series (with PA and lateral views) performed in deep inspiration is suggested for further evaluation. Dictated by: Lalo Nur M.D. on 06/25/2020 at 16:46 Approved by: Lalo Nur M.D. on 06/25/2020 at 16:47
[2020-06-25 17:29] LABS: Monotest Negative (Negative)
[2020-06-25 17:49] LABS: Erythrocyte Sedimentation Rate 5 MM/HR (0-15)
--- NOTE | 2020-06-25 17:57 | PC.NURSE ---
Updated patient that Step swab negative and covid results will be received in 24-72 hours with patient being notified either way. Instructed patient on necessity to act as though test is positive until results received to rule it out. Patient and spouse confirmed understanding. Updated patient still waiting on x-ray results.
[2020-06-25 18:04] LABS: Thyroid Stimulating Hormone 1.18 uIU/mL (0.47-4.68)
[2020-06-26 23:36] LABS: COVID19 Sendout Not Detected (Not Detected)
== END 2020-06-25 18:42 | disposition home or self-care (01) ==
PROVIDERS: Emergency Provider Student in an Organized Health Care Education/Training Program; PCP Family Medicine
DX: R42 Dizziness and giddiness (principal); R51 Headache; R11.0 Nausea
CPT/HCPCS: 36415; 71046; 80048; 81003; 83605; 84443; 85025; 85651; 86318; 87635; 87880; 93005; 96361; 96374; 96375; 99284; J0780; J2405

== ENCOUNTER → 2020-09-30 17:39 | Outpatient (CLI) | payer OTHER, SELFPAY ==
--- NOTE | 2020-09-30 | DI.MRI.S_ITS ---
PROCEDURE: MR HEAD/BRAIN WO/W CON INDICATIONS: DIZZINESS AND GIDDINESS TECHNIQUE: Noncontrast axial T1 spin echo, axial T2 fast spin echo, sagittal and axial FLAIR, coronal T2 fast spin echo, axial gradient echo, axial diffusion and ADC through the brain. After the administration of contrast, axial and coronal 3D VIBE or T1 spin echo with fat saturation through the brain. COMPARISON: [facility], CT, CT HEAD/BRAIN WO CON, 06/18/2020, 15:17. FINDINGS: Image quality: Excellent. CSF Spaces: Basal cisterns are patent. No extra-axial fluid collections. Ventricles are normal in size and shape. Brain: No midline shift. No intracranial bleeds or masses. No abnormal intracranial enhancement. The brainstem appears normal. Diffusion-weighted images demonstrate no acute ischemic insults. No chronic ischemic insults. Normal intravascular flow voids are present. Skull and face: Calvarial marrow is normal in signal. Orbits appear normal. Sinuses: Sinuses and mastoids appear clear. IMPRESSION: No masses or abnormal enhancement can be seen to explain the patient's presenting history. Dictated by: Lalo Nur M.D. on 09/30/2020 at 18:14 Approved by: Lalo Nur M.D. on 09/30/2020 at 18:15
== END ==
PROVIDERS: PCP Family Medicine; Referring Provider Family Medicine; Visit Provider Family Medicine
DX: R42 Dizziness and giddiness (principal)
CPT/HCPCS: 70553; A9579

== ENCOUNTER → 2020-11-24 16:01 | Outpatient (CLI) | payer OTHER, SELFPAY | PROVIDERS: PCP Family Medicine; Referring Provider Internal Medicine; Visit Provider Internal Medicine | DX: D72.829 Elevated white blood cell count, unspecified (principal) | CPT/HCPCS: 36415 ==

== ENCOUNTER → 2020-12-02 09:20 | Oncology outpatient (ONC) | payer OTHER, SELFPAY ==
[2020-10-27 15:18] VITALS: BP 139/75; PULSE 75; RESP 16; TEMP 36.9; O2SAT 96
--- NOTE | 2020-10-27 15:49 | ONC.CONS ---
History of Present Illness - Data of Consult Primary Care Provider: Susana Wilson MD - Consult Narrative Narrative: Alex Wagoner is a 39 year old male referred for further evaluation of leukocytosis. Review of his old records shows that in March of 2001 [place] [address]. In November of 2003 was 9000. In July 2009 was 11,900. In both December of 2011 and October of 2014 it was 12,200. On all of these counts his red cells and platelets were normal and he had no abnormal circulating white cell forms. More recently on September 29, 2020 he was noted to have a hemoglobin of 15.3 hematocrit 43.6 platelets 284412 white count 60081. Differential is that time was normal. His absolute neutrophils were 8800, absolute lymphocytes 4200 and absolute monocytes 900, all slightly elevated. There were no abnormal white cell forms and no nucleated red cells. Additional labs on October 26 included a normal comprehensive metabolic panel TSH. Sedimentation rate 05 June was 5. He is now referred for hematology consultation. Review of systems is remarkable for some bleeding gums which she attributes to chronic gum disease but he has no other bleeding from his nose, bowels, urinary easy bruising. He notes shortness of breath with exertion over the past year or so. He notes that when he is climbing hills. He does not have an exercise program and he has gained about 20 lb over the past year. He has a history of heartburn for several years which is now under control with Zantac. He has pain in his left knee and low back that have been present for several years with no recent changes. He sometimes notes that he feels lightheaded when he gets dyspneic on exertion. He has some numbness in his hands and legs that comes and goes and never wakes him up at night. He does not have any problems with lumps or bumps, swallowing symptoms, mouth sores, constipation, diarrhea, skin rash, night sweats. He has been diagnosed with vertigo but he has had head imaging this year that was unremarkable. All other systems are negative. Past medical history 1. DJD 2. High blood pressure 3. History of kidney stones 4. He denies diabetes, rheumatic fever, tuberculosis, heart attacks, strokes, stomach ulcers, pneumonia or any kind of cancer 5. 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 He is an occasional drinker. He is active at work but does not have a regular exercise program. He generally tries to eat a healthy diet. 6. Previous surgeries include removal of a cyst from his ankle, trigger finger surgery, inguinal herniorrhaphy and a tonsillectomy 7. His maternal grandmother had breast cancer. Paternal grandmother had lung cancer. There is no family history of any blood disorder 8. Is allergic to penicillin 9. Current medications include as needed Tylenol, as needed meclizine, as needed Zofran, as needed MiraLax and Zantac 75 mg twice a day as needed. CC: Angel Whitman MD Home Medications and Allergies Home Medications Medication Instructions Recorded Confirmed Type ranitidine HCl 75 mg PO PRN PRN #0 02/01/17 06/18/19 History acetaminophen 1,000 mg PO Q6H #30 cap 06/05/19 06/18/19 Rx polyethylene glycol 3350 [Miralax] 17 gram PO DAILY #10 each 06/05/19 06/18/19 Rx meclizine 25 mg PO TID PRN #14 tab 06/18/20 Rx ondansetron HCl [Zofran] 4 mg PO Q6H #14 tab 06/25/20 Rx Allergies Allergy/AdvReac Type Severity Reaction Status Date / Time Penicillins [PENICILLINS] Allergy Intermediate Verified 06/18/20 15:12 Medical History - Medical, Surgical, Family History Medical History: Medical History (Last Reviewed 06/25/20 @ 23:03 by Susana Haque PA-C) Diverticulosis Nephrolithiasis Obesity Surgical History: Surgical History (Last Reviewed 06/25/20 @ 23:03 by Susana Haque PA-C) History of colonoscopy History of tonsillectomy - Social History Smoking Status: Current every day smoker Review of Systems - Patient Self-Reported Symptoms SR Constitution: Weight loss/gain SR ears, nose, mouth, throat issues: Bleeding gums SR Cardiovascular issues: Shortness of breath with activity or lying flat SR Gastrointestinal issues: Heartburn SR Musculoskeletal issues: Joint pain or swelling, Muscle pain or cramps, Back or neck pain SR Neuro issues: Lightheaded/dizzy, Numbness or tingling Exam Vital signs: Vital Signs Temp Pulse Resp BP Pulse Ox 10/27/20 15:18 98.4 F 75 16 139/75 96 Intake and Output 10/26/20 10/27/20 10/27/20 23:59 07:59 15:59 Other: Weight 104.9 kg Patient Weight 10/27/20 23:59 Weight 104.9 kg Narrative: He was awake, alert and oriented x3. Was fully ambulatory in no acute distress. There was no palpable lymphadenopathy in the cervical, supraclavicular, axillary regions. Lungs were clear without wheezes or rales. Heart showed a regular rate and rhythm without murmur, gallop or rub. The abdomen is soft and nontender without organomegaly or masses. The spleen was not palpable in the right lateral decubitus position. Results - Imaging Additional studies: Procedures Anoscopy (02/07/12) Colonoscopy (02/07/12) Injection or infusion of other therapeutic or prophylactic substance (11/13/14) Ligation of hemorrhoids (02/07/12) Assessment and Plan (1) Leucocytosis Status: Acute still has a modest white count elevation that has been present since at least March of 2001. He does not have circulating abnormal white cell forms, anemia, erythrocytosis, thrombocytopenia, or thrombocytosis. He does not have any findings on his history or physical that would suggest an underlying lymphoproliferative or myeloproliferative syndrome. The long time course would argue against a malignancy as an underlying lift driver of his leukocytosis. He has history of arthritis but a recent sedimentation rate was normal arguing against an underlying inflammatory process. And inflammatory process driving a leukocytosis for over 19 years without obviously declaring itself would be unusual. He is a smoker and this is a potential explanation for his leukocytosis. This is commonly seen in smokers in typically associated with a normal differential. I explained this is a diagnosis of exclusion and there is no specific test that we would do that would clinch this diagnosis. However, given the long time course and absence of other potential culprits including medications, abnormal white cell differential, anemia or erythrocytosis, thrombin type thrombocytopenia or thrombocytosis, palpable splenomegaly, or evidence of an underlying infectious or inflammatory process, smoking would be the most likely diagnosis. We will check labs today to include a CBC with manual differential, review of his peripheral smear and C-reactive protein. If these studies are unrevealing, a presumptive diagnosis of smoking related leukocytosis would be appropriate and periodic follow-up testing would be in order. He will return in a few weeks after these studies have been completed and further plans will be made at that time. I personally spent 34 minutes in today's [id number] visit with greater than 50% of the time spent in counseling regarding the issues outlined above. Impression: 1. Leukocytosis dating back to at least March of 2001 2. No evidence of an underlying malignancy, lymphoproliferative disorder, myeloproliferative disorder, chronic infection, or chronic inflammatory process as discussed above 3. Red cells and platelets have been consistently normal Recommendations: 1. C reactive protein 2. CBC with manual differential and peripheral smear review 3. Return afterwards for review of results 4. Patient was counseled that the likely explanation for his leukocytosis is smoking Thank Dr. Susana Wilson for referring this very pleasant interesting patient
--- NOTE | 2020-10-27 16:07 | ONC.SCHED ---
Per [employer], no PA needed for peripheral blood smear 75067 nor C-reactive protein 12294.
--- NOTE | 2020-10-28 08:46 | ONC.SCHED ---
Left . with patient's spouse who is on auth to discuss that he can go to the lab for his lab draw @ [facility]. Insurance doesn't need [employer].
[2020-11-02 07:45] LABS: Hematocrit 44.4 % (41-53); Hemoglobin 15.2 g/dL (13.5-17.5); Mean Corpuscular HGB Conc 34.2 % (30-36); Mean Corpuscular Hemoglobin 31.1 PG (26-34); Mean Corpuscular Volume 90.9 fL (80-100); Platelet Count 225 X10^3/uL (150-400); Red Blood Cell Count 4.88 X10^6/uL (4.5-5.9); Red Cell Distribution Width 12.9 % (11.6-14.8)
[2020-11-02 07:56] LABS: C-Reactive Protein Quant 1.1 mg/dL (<1.0)
[2020-11-02 08:31] LABS: Neutrophils Absolute Manual 6100 /uL (3000-5900); RBC Morphology Normal Morphology; Smudge Cells 1+; Total Cells Counted 100
[2020-11-17 16:12] VITALS: BP 128/75; PULSE 72; RESP 16; TEMP 37; O2SAT 96
--- NOTE | 2020-11-17 16:44 | ONC.PN ---
PN -Subjective Interval history: Alex Wagoner is a 39 year old male seen for follow-up evaluation of leukocytosis. Review of his old records shows that in March of 2001 [place] [address]. In November of 2003 was 9000. In July 2009 was 11,900. In both December of 2011 and October of 2014 it was 12,200. On all of these counts his red cells and platelets were normal and he had no abnormal circulating white cell forms. More recently on September 29, 2020 he was noted to have a hemoglobin of 15.3 hematocrit 43.6 platelets 282351 white count 40573. Differential is that time was normal. His absolute neutrophils were 8800, absolute lymphocytes 4200 and absolute monocytes 900, all slightly elevated. There were no abnormal white cell forms and no nucleated red cells. Additional labs on October 26 included a normal comprehensive metabolic panel TSH. Sedimentation rate 05 June was 5. He was referred for hematology consultation had testing done, and now presents today to review results.. Review of systems is remarkable for some bleeding gums which she attributes to chronic gum disease but he has no other bleeding from his nose, bowels, urinary easy bruising. He notes shortness of breath with exertion over the past year or so. He notes that when he is climbing hills. He does not have an exercise program and he has gained about 20 lb over the past year. He has a history of heartburn for several years which is now under control with Zantac. He has pain in his left knee and low back that have been present for several years with no recent changes. He sometimes notes that he feels lightheaded when he gets dyspneic on exertion. He has some numbness in his hands and legs that comes and goes and never wakes him up at night. He does not have any problems with lumps or bumps, swallowing symptoms, mouth sores, constipation, diarrhea, skin rash, night sweats. He has been diagnosed with vertigo but he has had head imaging this year that was unremarkable. All other systems are negative. Past medical history 1. DJD 2. High blood pressure 3. History of kidney stones 4. He denies diabetes, rheumatic fever, tuberculosis, heart attacks, strokes, stomach ulcers, pneumonia or any kind of cancer 5. 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 He is an occasional drinker. He is active at work but does not have a regular exercise program. He generally tries to eat a healthy diet. 6. Previous surgeries include removal of a cyst from his ankle, trigger finger surgery, inguinal herniorrhaphy and a tonsillectomy 7. His maternal grandmother had breast cancer. Paternal grandmother had lung cancer. There is no family history of any blood disorder 8. Is allergic to penicillin 9. Current medications include as needed Tylenol, as needed meclizine, as needed Zofran, as needed MiraLax and Zantac 75 mg twice a day as needed. - Patient Self-Reported Symptoms SR Constitution: Fatigue/Malaise, Night Sweats SR ears, nose, mouth, throat issues: Bleeding gums SR Cardiovascular issues: Shortness of breath with activity or lying flat SR Gastrointestinal issues: Heartburn SR Musculoskeletal issues: Joint pain or swelling, Back or neck pain SR Neuro issues: Numbness or tingling Home Medications and Allergies Home Medications Medication Instructions Recorded Confirmed Type ranitidine HCl 75 mg PO PRN PRN #0 02/01/17 11/17/20 History acetaminophen 1,000 mg PO Q6H #30 cap 06/05/19 11/17/20 Rx polyethylene glycol 3350 [Miralax] 17 gram PO DAILY #10 each 06/05/19 11/17/20 Rx meclizine 25 mg PO TID PRN #14 tab 06/18/20 11/17/20 Rx ondansetron HCl [Zofran] 4 mg PO Q6H #14 tab 06/25/20 11/17/20 Rx Allergies Allergy/AdvReac Type Severity Reaction Status Date / Time Penicillins [PENICILLINS] Allergy Intermediate Verified 06/18/20 15:12 Exam Vital signs: Vital Signs Temp Pulse Resp BP Pulse Ox 11/17/20 16:12 98.6 F 72 16 128/75 96 Intake and Output 11/17/20 11/17/20 11/17/20 07:59 15:59 23:59 Other: Weight 102 kg Patient Weight 11/17/20 23:59 Weight 102 kg Narrative: He was awake, alert and oriented x3. Was fully ambulatory in no acute distress. Results - Labs Laboratory Last Values WBC 10.0 X10^3/uL (4.5-11.0) 11/02/20 07:35 RBC 4.88 X10^6/uL (4.5-5.9) 11/02/20 07:35 Hgb 15.2 g/dL (13.5-17.5) 11/02/20 07:35 Hct 44.4 % (41-53) 11/02/20 07:35 MCV 90.9 fL (80-100) 11/02/20 07:35 MCH 31.1 PG (26-34) 11/02/20 07:35 MCHC 34.2 % (30-36) 11/02/20 07:35 RDW 12.9 % (11.6-14.8) 11/02/20 07:35 Plt Count 225 X10^3/uL (150-400) 11/02/20 07:35 Total Counted 100 11/02/20 07:35 Seg Neutrophils % 60.0 % (38-70) 11/02/20 07:35 Band Neutrophils % 1.0 % (3-7) L 11/02/20 07:35 Lymphocytes % (Manual) 24.0 % (25-45) L 11/02/20 07:35 Atypical Lymphs % 3.0 % (-0) H 11/02/20 07:35 Monocytes % (Manual) 11.0 % (2-11) 11/02/20 07:35 Eosinophils % (Manual) 1.0 % (2-4) L 11/02/20 07:35 Neutrophils # (Manual) 6100 /uL (2543-4287) H 11/02/20 07:35 Smudge Cells 1+ H 11/02/20 07:35 RBC Morphology Normal morphology 11/02/20 07:35 Smear Path Review 11/02/20 07:35 C-Reactive Protein 1.1 mg/dL (<1.0) H 11/02/20 07:35 - Imaging Additional studies: Procedures Anoscopy (02/07/12) Colonoscopy (02/07/12) Injection or infusion of other therapeutic or prophylactic substance (11/13/14) Ligation of hemorrhoids (02/07/12) Assessment and Plan (1) Leucocytosis Status: Acute still has a modest white count elevation that has been present since at least March of 2001. His most recent [place] [address]. However, he had 3% atypical lymphocytes as well as 1+ smudge cells. I explained that these findings can be present in patients with lymphoproliferative disorders like chronic lymphocytic leukemia. Accordingly, flow cytometry to exclude this diagnosis would be appropriate. If the flow cytometry is unrevealing, annual CBC follow-up would be indicated and no further workup would be necessary at this time. He is a smoker and this is also a potential explanation for his leukocytosis. If his flow cytometry is unrevealing, this would be the most likely explanation and annual follow-up would be appropriate. Flow cytometry was ordered and we will plan to see him back after that has been completed. Further plans will be made at That time. Impression: 1. Leukocytosis dating back to at least March of 2001 2. No evidence of an underlying malignancy, lymphoproliferative disorder, myeloproliferative disorder, chronic infection, or chronic inflammatory process as discussed above 3. Red cells and platelets have been consistently normal 4. Atypical lymphocytes and smudge cells were noted on his most recent CBC from earlier this month. Recommendations: 1. Peripheral blood for 5 leukemia lymphoma immunophenotyping profile to exclude an underlying lymphoproliferative disorder given his atypical lymphocytes and smudge cells noted on peripheral smear. 2. Return afterwards for review of results 3. Further plans once his flow cytometry is available for review.
[2020-12-02 09:44] VITALS: BP 124/73; PULSE 69; RESP 18; TEMP 36.6; O2SAT 97
--- NOTE | 2020-12-02 09:53 | ONC.PN ---
PN -Subjective Interval history: Alex Wagoner is a 39 year old male seen for follow-up evaluation of leukocytosis. Review of his old records shows that in March of 2001 [place] [address]. In November of 2003 was 9000. In July 2009 was 11,900. In both December of 2011 and October of 2014 it was 12,200. On all of these counts his red cells and platelets were normal and he had no abnormal circulating white cell forms. More recently on September 29, 2020 he was noted to have a hemoglobin of 15.3 hematocrit 43.6 platelets 265089 white count 47452. Differential is that time was normal. His absolute neutrophils were 8800, absolute lymphocytes 4200 and absolute monocytes 900, all slightly elevated. There were no abnormal white cell forms and no nucleated red cells. Additional labs on October 26 included a normal comprehensive metabolic panel TSH. Sedimentation rate 05 June was 5. He was referred for hematology consultation had testing done, and now presents today to review results. At the time of his last visit he was noted to have some atypical lymphocytes and flow cytometry was sent. Comes in today to review this result. Review of systems is remarkable for some bleeding gums which she attributes to chronic gum disease but he has no other bleeding from his nose, bowels, urinary easy bruising. He notes shortness of breath with exertion over the past year or so. He notes that when he is climbing hills. He does not have an exercise program and he has gained about 20 lb over the past year. He has a history of heartburn for several years which is now under control with Zantac. He has pain in his left knee and low back that have been present for several years with no recent changes. He sometimes notes that he feels lightheaded when he gets dyspneic on exertion. He has some numbness in his hands and legs that comes and goes and never wakes him up at night. He does not have any problems with lumps or bumps, swallowing symptoms, mouth sores, constipation, diarrhea, skin rash, night sweats. He has been diagnosed with vertigo but he has had head imaging this year that was unremarkable. All other systems are negative. Past medical history 1. DJD 2. High blood pressure 3. History of kidney stones 4. He denies diabetes, rheumatic fever, tuberculosis, heart attacks, strokes, stomach ulcers, pneumonia or any kind of cancer 5. 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 He is an occasional drinker. He is active at work but does not have a regular exercise program. He generally tries to eat a healthy diet. 6. Previous surgeries include removal of a cyst from his ankle, trigger finger surgery, inguinal herniorrhaphy and a tonsillectomy 7. His maternal grandmother had breast cancer. Paternal grandmother had lung cancer. There is no family history of any blood disorder 8. Is allergic to penicillin 9. Current medications include as needed Tylenol, as needed meclizine, as needed Zofran, as needed MiraLax and Zantac 75 mg twice a day as needed. - Patient Self-Reported Symptoms SR Constitution: Fatigue/Malaise, Night Sweats SR ears, nose, mouth, throat issues: Bleeding gums SR Cardiovascular issues: Shortness of breath with activity or lying flat SR Gastrointestinal issues: Heartburn SR Musculoskeletal issues: Joint pain or swelling SR Neuro issues: Numbness or tingling Home Medications and Allergies Home Medications Medication Instructions Recorded Confirmed Type ranitidine HCl 75 mg PO PRN PRN #0 02/01/17 11/17/20 History acetaminophen 1,000 mg PO Q6H #30 cap 06/05/19 11/17/20 Rx polyethylene glycol 3350 [Miralax] 17 gram PO DAILY #10 each 06/05/19 11/17/20 Rx meclizine 25 mg PO TID PRN #14 tab 06/18/20 11/17/20 Rx ondansetron HCl [Zofran] 4 mg PO Q6H #14 tab 06/25/20 11/17/20 Rx Allergies Allergy/AdvReac Type Severity Reaction Status Date / Time Penicillins [PENICILLINS] Allergy Intermediate Verified 06/18/20 15:12 Exam Vital signs: Vital Signs Temp Pulse Resp BP Pulse Ox 12/02/20 09:44 98 F 69 18 124/73 97 Intake and Output 12/01/20 12/02/20 12/02/20 23:59 07:59 15:59 Other: Weight 102.7 kg Patient Weight 12/02/20 23:59 Weight 102.7 kg Narrative: He was awake, alert and oriented x3. Was fully ambulatory in no acute distress. Results - Labs Laboratory Last Values WBC 10.0 X10^3/uL (4.5-11.0) 11/02/20 07:35 RBC 4.88 X10^6/uL (4.5-5.9) 11/02/20 07:35 Hgb 15.2 g/dL (13.5-17.5) 11/02/20 07:35 Hct 44.4 % (41-53) 11/02/20 07:35 MCV 90.9 fL (80-100) 11/02/20 07:35 MCH 31.1 PG (26-34) 11/02/20 07:35 MCHC 34.2 % (30-36) 11/02/20 07:35 RDW 12.9 % (11.6-14.8) 11/02/20 07:35 Plt Count 225 X10^3/uL (150-400) 11/02/20 07:35 Total Counted 100 11/02/20 07:35 Seg Neutrophils % 60.0 % (38-70) 11/02/20 07:35 Band Neutrophils % 1.0 % (3-7) L 11/02/20 07:35 Lymphocytes % (Manual) 24.0 % (25-45) L 11/02/20 07:35 Atypical Lymphs % 3.0 % (-0) H 11/02/20 07:35 Monocytes % (Manual) 11.0 % (2-11) 11/02/20 07:35 Eosinophils % (Manual) 1.0 % (2-4) L 11/02/20 07:35 Neutrophils # (Manual) 6100 /uL (3757-2924) H 11/02/20 07:35 Smudge Cells 1+ H 11/02/20 07:35 RBC Morphology Normal morphology 11/02/20 07:35 Smear Path Review 11/02/20 07:35 C-Reactive Protein 1.1 mg/dL (<1.0) H 11/02/20 07:35 - Imaging Additional studies: Procedures Anoscopy (02/07/12) Colonoscopy (02/07/12) Injection or infusion of other therapeutic or prophylactic substance (11/13/14) Ligation of hemorrhoids (02/07/12) Assessment and Plan (1) Leucocytosis Status: Acute still has a modest white count elevation that has been present since at least March of 2001. His most recent [place] [address]. However, he had 3% atypical lymphocytes as well as 1+ smudge cells. I explained that these findings can be present in patients with lymphoproliferative disorders like chronic lymphocytic leukemia. Accordingly, flow cytometry was done and this came back negative. We discussed the fact this is an extremely sensitive tested even of less than 1% frequency of CLL cells would be detectable with this technique. A negative result is, therefore, power fully reassuring. He is a smoker and this is the most likely explanation for his leukocytosis. I explained the leukocytosis of smoking is a diagnosis of exclusion. There is no specific test we do that identifies this. However, in the absence of any other plausible explanations this would be the most likely diagnosis in this case. I also explained that the leukocytosis in of itself is not harmful. However, smoking can have a variety of detrimental effects on his health and I encouraged him to quit. He would be appropriately monitored with an annual CBC. He would like to get this done under the direction of his primary physician which I think is fine. Accordingly, although no specific return appointment has been scheduled to this office, would be happy see me again in any time in the future. Impression: 1. Leukocytosis dating back to at least March of 2001 2. No evidence of an underlying malignancy, lymphoproliferative disorder, myeloproliferative disorder, chronic infection, or chronic inflammatory process as discussed above 3. Red cells and platelets have been consistently normal 4. Atypical lymphocytes and smudge cells were noted on his most recent CBC but flow cytometry was negative 5. His leukocytosis is most likely due to his smoking. Recommendations: 1. No additional workup is indicated at this time 2. He should have an annual CBC and would like to get this done under the direction of his primary physician 3. No specific return appointment has been scheduled to this office will be happy to see him again at any time in the future if we could be of assistance in his care.
== END ==
PROVIDERS: PCP Family Medicine; Referring Provider Family Medicine; Visit Provider Internal Medicine
DX: D72.829 Elevated white blood cell count, unspecified (principal); I10 Essential (primary) hypertension; F17.210 Nicotine dependence, cigarettes, uncomplicated
CPT/HCPCS: 36415; 85025; 86140; 99203; 99213

== ENCOUNTER → 2021-05-05 08:48 | Outpatient (CLI) | payer OTHER, SELFPAY ==
[2021-05-05 09:33] LABS: Influenza A - CEPHEID Flu A NEGATIVE (NEGATIVE); Influenza B - CEPHEID Flu B NEGATIVE (NEGATIVE)
[2021-05-05 09:54] LABS: COVID19 -Nasal RAPID Negative (Negative)
== END ==
PROVIDERS: PCP Family Medicine; Visit Provider Physician Assistant
DX: J02.9 Acute pharyngitis, unspecified (principal); R05 Cough; R09.81 Nasal congestion; R50.9 Fever, unspecified
CPT/HCPCS: 87070; 87502; 87635

== ENCOUNTER 2021-06-25 05:37 | Emergency (ER) | payer OTHER, SELFPAY ==
[2021-06-25 05:45] VITALS: BP 164/102; PULSE 98; RESP 25; TEMP 36.8; O2SAT 97; BMI 35.2
--- NOTE | 2021-06-25 05:48 | DI.CT.S_ITS ---
PROCEDURE: CT KIDNEY URETER BLADDER (KUB) INDICATIONS: flank pain TECHNIQUE: Axial sections were acquired from the lung bases to the pubic symphysis. Coronal and sagittal reformats were performed. For radiation dose reduction, the following was used: automated exposure control, adjustment of mA and/or kV according to patient size. COMPARISON:[facility], CT, KIDNEY/ URETER/BLADDER, 11/13/2014, 9:34. [facility], CT, KIDNEY/ URETER/BLADDER, 11/02/2011, 13:12. FINDINGS: Image quality: Excellent. Lung bases: Mild linear scarring each lung base. This is mildly greater on the left than the right.. Heart: No significant findings. URINARY: Right Kidney: There are several lower 3rd collecting system punctate calculi but no hydronephrosis. Right Ureter: No hydroureter. Left Kidney: Mild left-sided hydronephrosis without obstructive collecting system calculus. Left Ureter: There is a mild degree of hydroureter on the left to the pelvis level where a 3 mm calculus appears present within the distal ureter. Bladder: Normal wall thickness. No stones. ABDOMEN: Liver: Unremarkable. Gallbladder: Unremarkable. Biliary ducts: Unremarkable. Pancreas: Unremarkable. Spleen: Unremarkable. Adrenal Glands: Unremarkable. Stomach and Bowel: Stomach, small bowel loops, and colon are unremarkable. Peritoneum: No abnormal intraperitoneal fluid. No free air. Ventral Wall: No hernia. Abdominal Nodes: No enlarged retroperitoneal or mesenteric lymph nodes. Vessels: Aorta and inferior vena cava are this stone measures 3 mm in maximal dimension normal in size. PELVIS: Pelvic Organs: Unremarkable. Pelvic Nodes: Unremarkable. Miscellaneous: No inguinal hernias are seen. Normal appendix found. Bones: Unremarkable. IMPRESSION: Far distal ureteral stone on the left, causing mild hydronephrosis and hydroureter. This stone measures 3 mm in maximal dimension, and a stone of this size likely will pass without urologic intervention. Normal appendix found. Dictated by: Sarath Wyatt M.D. on 06/25/2021 at 9:23 Approved by: Sarath Wyatt M.D. on 06/25/2021 at 9:28
[2021-06-25] MEDS: ONDANSETRON 4 MG/2 ML INJ IV (06:01)
[2021-06-25] MEDS: KETOROLAC 30 MG/ML VIAL 15 MG IV (06:01)
[2021-06-25] MEDS: SODIUM CHLORIDE 0.9% 1,000 ML 1000 ML IV (06:02)
--- NOTE | 2021-06-25 06:04 | ED_ITS ---
HPI - General Adult General Chief complaint: Back Pain/Injury Stated complaint: Severe pain in left side blood in urine Time Seen by Provider: 06/25/21 05:47 History of Present Illness HPI narrative: 40-year-old gentleman of hypertension, prior kidney stones presents with severe left flank pain radiating into his groin and scrotum. He noted a bit of burning in the area last night but was abruptly awoken from sleep at 2:30 a.m. this morning with severe pain. He presents in obvious pain diaphoretic secondary to the pain with severe nausea. He is standing up and trying to find a comfortable position to be in and unable to do so. Related Data Home Medications Medication Instructions Recorded Confirmed ranitidine HCl 75 mg tablet 75 mg PO PRN PRN #0 02/01/17 11/17/20 omeprazole PO 05/05/21 05/05/21 Previous Rx's Medication Instructions Recorded acetaminophen 500 mg capsule 1,000 mg PO Q6H #30 cap 06/05/19 polyethylene glycol 3350 17 gram 17 gram PO DAILY #10 each 06/05/19 oral powder packet (Miralax) meclizine 25 mg tablet 25 mg PO TID PRN #14 tab 06/18/20 ondansetron HCl 4 mg tablet 4 mg PO Q6H #14 tab 06/25/20 (Zofran) oxycodone-acetaminophen 5 mg-325 1 tab PO Q6H PRN #14 tab 06/25/21 mg tablet tamsulosin 0.4 mg capsule 0.4 mg PO DAILY #20 cap 06/25/21 Allergies Allergy/AdvReac Type Severity Reaction Status Date / Time Penicillins [PENICILLINS] Allergy Intermediate Verified 05/05/21 08:41 Review of Systems Review of Systems Narrative: Pertinent positive and negative findings as per HPI Remainder of review of systems is otherwise unremarkable for Constitutional: Fevers, chills, weakness ENT: No sore throat, neck pain, ear pain CV: Chest pain, palpitations, Respiratory: Cough, wheeze, dyspnea GI: Nausea, vomiting, diarrhea, : Dysuria, hematuria, Patient History Medical History Diverticulosis Nephrolithiasis Obesity Upper respiratory infection Surgical History History of colonoscopy History of tonsillectomy Social History marital status: household members: spouse Smoking Status: Current every day smoker alcohol intake: current substance use type: does not use Smoking Status: Current every day smoker Substance Use Type: does not use Exam Narrative Exam Narrative: General: Healthy appearing, in severe distress, diaphoretic Able to give a complete and coherent history. Well-nourished well-developed HEENT: Moist mucous membranes, normal sclera with reactive pupils, Respiratory: Lungs are clear to auscultation, no wheezing no rales no rhonchi. Full and symmetrical air movement Cardiac: Regular rate and rhythm no murmurs no bruits Abdomen: Soft, nontender, good bowel tones, no flank pain Skin: Warm and dry, no rashes Neurologic: Grossly neurologically intact with no obvious asymmetries or abnormalities Extremities: No trauma, well perfused Psych: Cooperative, appropriate insight and affect Initial Vital Signs Initial Vital Signs: Vital Signs Temperature 98.2 F 06/25/21 05:45 Pulse Rate 98 H 06/25/21 05:45 Respiratory Rate 25 H 06/25/21 05:45 Blood Pressure 164/102 H 06/25/21 05:45 Pulse Oximetry 97 06/25/21 05:45 Course Orders Ordered: ED Orders 06/25/21 05:45 Ictotest Urine Stat Urinalysis and Microscopic Stat 06/25/21 05:48 CT kidney ureter bladder (KUB) Stat 06/25/21 05:55 Complete Blood Count AUTO DIFF Stat Comprehensive Metabolic Panel Stat Hydromorphone HCl (Hydromorphone 0.5 Mg Inj) 0.5 mg IV Q15MIN PRN PRN Reason: Pain, Last Admin: 06/25/21 07:40 Dose: 0.5 mg Documented by: KBRYERS Discontinued Medications Sodium Chloride (Normal Saline 0.9%) 1,000 mls @ 1,000 mls/hr IV BOLUS ONE Stop: 06/25/21 06:46 Last Infusion: 06/25/21 07:07 Dose: 0 mls/hr Documented by: Admin: 06/25/21 06:02 Dose: 1,000 mls/hr Documented by: DAYNA Ketorolac Tromethamine (Ketorolac 30 Mg/Ml Vial) 15 mg IV NOW ONE Stop: 06/25/21 05:48 Last Admin: 06/25/21 06:01 Dose: 15 mg Documented by: DAYNA Ondansetron HCl (Ondansetron 4 Mg/2 Ml Inj) 4 mg IV NOW ONE Stop: 06/25/21 05:48 Last Admin: 06/25/21 06:01 Dose: 4 mg Documented by: DAYNA Vital Signs Vital signs: Vital Signs - 8 hr 06/25/21 05:45 06/25/21 07:37 06/25/21 07:38 Temperature 98.2 F Pulse Rate 98 H 94 H 82 Respiratory Rate 25 H Blood Pressure 164/102 H 166/84 H Pulse Oximetry 97 97 98 Medical Decision Making Lab Data Result diagrams: 06/25/21 05:55 06/25/21 05:55 Labs: Lab Results 06/25/21 06/25/21 06/25/21 Range/Units 05:45 05:55 05:55 WBC 11.2 H (4.5-11.0) X10^3/uL RBC 5.40 (4.5-5.9) X10^6/uL Hgb 17.0 (13.5-17.5) g/dL Hct 48.7 (41-53) % MCV 90.3 (80-100) fL MCH 31.5 (26-34) PG MCHC 34.9 (30-36) % RDW 13.5 (11.6-14.8) % Plt Count 271 (150-400) X10^3/uL Neut % (Auto) 63.4 (50-75) % Lymph % (Auto) 26.4 (25-40) % [place] % (Auto) 7.4 (3-14) % Eos % (Auto) 1.8 L (2-4) % Baso % (Auto) 1.0 (0-2) % Neut # (Auto) 7100 H (2883-4844) /uL Lymph # (Auto) 2900 (6519-5062) /uL [place] # (Auto) 800 (0-900) /uL Eos # (Auto) 200 (0-450) /uL Baso # (Auto) 100 (0-100) /uL Sodium 141 (137-145) mmol/L Potassium 4.3 (3.4-5.1) mmol/L Chloride 109 H (98-107) mmol/L Carbon Dioxide 22 (22-32) mmol/L BUN 12 (9-20) mg/dL Creatinine 1.03 (0.66-1.25) mg/dL Estimated GFR > 60.0 (>60) mL/min BUN/Creatinine Ratio 11.7 (6-22) Glucose 160 H (70-100) mg/dL Calcium 9.9 (8.4-10.2) mg/dL Total Bilirubin 0.6 (0.2-1.3) mg/dL AST 45 (17-59) IU/L ALT 40 (<50) IU/L Alkaline Phosphatase 113 (38-126) U/L Total Protein 8.6 H (6.3-8.2) g/dL Albumin 4.8 (3.5-5.0) g/dL Globulin 3.8 (1.7-4.1) g/dL Albumin/Globulin Ratio 1.3 (1.0-2.8) Urine Color Brown Urine Appearance Cloudy Urine pH 6.5 (4.5-8.0) Ur Specific [place] 1.025 (1.000-1.035) Urine Protein 3+ H (Negative) Urine Glucose (UA) Trace H (Negative) g/dL Urine Ketones Trace H (NEGATIVE) Urine Occult Blood 3+ H (Negative) Urine Nitrate Negative (Negative) Urine Bilirubin 2+ H (NEGATIVE) Ur Bilirubin Confirm Negative (Negative) Urine Urobilinogen 1.0 (0.2) E.U./dL Ur Leukocyte Esterase Trace H (NEGATIVE) Urine RBC 10-30/hpf H (0-5/HPF) Urine WBC 0-1/hpf (0-5/HPF) Urine Bacteria Few (2-10) H (None) Urine Sperm 1-5 Ur Culture Indicated? Cult not indicated Micro UA Comment MDM Narrative Medical decision making narrative: 40-year-old gentleman with severe left flank pain and CT KUB suggesting left 4 mm distal ureteral stone. No evidence of acute surgical abdomen or infection. He does note that he was significantly dehydrated yesterday. He responded nicely to IV Toradol and Dilaudid. Pain was controlled time of discharge home. Will discharge him home with Percocet for pain control, lasting to strain his urine, Flomax until the 4 mm stone is passed and follow-up with his primary care physician regarding his renal stones. Carefully reviewed within signs and symptoms of worsening infection or kidney infection with clear instructions to return should he experience any of those. He is safe for home discharge Discharge Plan Departure Patient Disposition: Home Clinical Impression: Ureterolithiasis Instructions: Kidney Stones -- Adult Activity Restrictions/Additional Instructions: Thank you for coming in today You have a 4 mm kidney stone on the left side that is almost out. It is blocking the ureter, the 2 between your kidney and your bladder and this is causing your pain. There does not appear to be any other explanation for your pain, no infection or other findings on CT scan Using 400 mg of ibuprofen (2 [id number] pills) and 1 Tylenol every 6 hours can be very helpful in controlling pain. For severe pain using to ibuprofen and 1-2 Percocet will be helpful Please take tamsulosin/Flomax daily until you have passed the stone Please strain your urine to catch the stone so that you notice truly passed I would suggest that you follow-up with either your primary care physician or with Dr. Gould our urologist here at [facility] Prescriptions: New oxycodone-acetaminophen 5-325 mg tablet 1 tab PO Q6H PRN (Reason: pain) Qty: 14 RF: 0 tamsulosin 0.4 mg capsule 0.4 mg PO DAILY Qty: 20 RF: 0 No Action omeprazole PO RF: 0 ranitidine HCl 75 MG tablet 75 mg PO PRN PRN (Reason: Indigestion) Qty: 0 RF: 0 acetaminophen 500 mg capsule 1,000 mg PO Q6H Qty: 30 RF: 0 polyethylene glycol 3350 [Miralax] 17 gram powder in packet 17 gram PO DAILY Qty: 10 RF: 0 meclizine 25 mg tablet 25 mg PO TID PRN (Reason: dizziness) Qty: 14 RF: 0 ondansetron HCl [Zofran] 4 mg tablet 4 mg PO Q6H Qty: 14 RF: 0 Referrals: Susana Wilson MD [Primary Care Provider] -
[2021-06-25 06:05] LABS: Add Manual Diff / Slide Review NO; Basophils Absolute Auto 100 /uL (0-100); Eosinophils Absolute Auto 200 /uL (0-450); Eosinophils Percent Auto 1.8 % (2-4); Hematocrit 48.7 % (41-53); Lymphocytes Absolute Auto 2900 /uL (1100-4500); Lymphocytes Percent Auto 26.4 % (25-40); Mean Corpuscular HGB Conc 34.9 % (30-36); Mean Corpuscular Hemoglobin 31.5 PG (26-34); Mean Corpuscular Volume 90.3 fL (80-100); Monocytes Absolute Auto 800 /uL (0-900); Monocytes Percent Auto 7.4 % (3-14); Neutrophils Absolute Auto 7100 /uL (1500-7000); Neutrophils Percent Auto 63.4 % (50-75); Platelet Count 271 X10^3/uL (150-400); Red Cell Distribution Width 13.5 % (11.6-14.8); White Blood Cell Count 11.2 X10^3/uL (4.5-11.0)
[2021-06-25 06:14] LABS: Alanine Aminotransferase 40 IU/L (<50); Albumin 4.8 g/dL (3.5-5.0); Albumin Globulin Ratio 1.3 (1.0-2.8); Alkaline Phosphatase 113 U/L (38-126); Aspartate Aminotransferase 45 IU/L (17-59); BUN Creatinine Ratio 11.7 (6-22); Bilirubin Total 0.6 mg/dL (0.2-1.3); Blood Urea Nitrogen 12 mg/dL (9-20); Calcium 9.9 mg/dL (8.4-10.2); Carbon Dioxide 22 mmol/L (22-32); Chloride 109 mmol/L (98-107); Estimated Glomerular Filt Rate > 60.0 mL/min (>60); Globulin 3.8 g/dL (1.7-4.1); Glucose 160 mg/dL (70-100); HEMOLYSIS 49 (0-50); Potassium 4.3 mmol/L (3.4-5.1); Sodium 141 mmol/L (137-145); Total Protein 8.6 g/dL (6.3-8.2)
[2021-06-25 06:18] LABS: Appearance Urine UA CLOUDY; Bilirubin Urine UA 2+ (NEGATIVE); Color Urine UA BROWN; Glucose Urine UA TRACE g/dL (Negative); Ketones Urine UA TRACE (NEGATIVE); Leukocyte Esterase Urine UA TRACE (NEGATIVE); Occult Blood Urine UA 3+ (Negative); Protein Urine UA 3+ (Negative); Specific Gravity Urine UA 1.025 (1.000-1.035); pH Urine UA 6.5 (4.5-8.0)
[2021-06-25 06:34] LABS: Nitrite Urine UA NEGATIVE (Negative)
[2021-06-25 06:43] LABS: Bacteria Urine Few (2-10); Ictotest Urine Negative (Negative); RBC Urine 10-30/HPF (0-5/HPF); WBC Urine 0-1/HPF (0-5/HPF)
[2021-06-25 06:44] LABS: Culture Indicated Urine Cult Not Indicated
[2021-06-25 07:37] VITALS: PULSE 94; O2SAT 97
[2021-06-25 07:38] VITALS: BP 166/84; PULSE 82; O2SAT 98
[2021-06-25] MEDS: HYDROMORPHONE 0.5 MG INJ IV ×2 (07:40→07:57)
== END 2021-06-25 08:00 | disposition home or self-care (01) ==
PROVIDERS: Emergency Provider Emergency Medicine; PCP Family Medicine
DX: N20.1 Calculus of ureter (principal); R11.0 Nausea; R31.9 Hematuria, unspecified
CPT/HCPCS: 36415; 74176; 80053; 81001; 85025; 96361; 96374; 96375; 99284; J1170; J1885; J2405

== ENCOUNTER → 2021-09-27 14:11 | Outpatient (CLI) | payer OTHER, SELFPAY ==
--- NOTE | 2021-09-27 | DI.RAD.S_ITS ---
PROCEDURE: XR RIBS LT 2V INDICATIONS: Pleurodynia TECHNIQUE: 2 views of the left ribs were acquired. COMPARISON: None. FINDINGS: Surgical changes and devices: None. Bones and chest wall: No fractures or dislocations. No suspicious bony lesions. Overlying soft tissues appear unremarkable. Lungs and pleura: The visualized lung appears clear. No pleural effusions or pneumothorax are visible. IMPRESSION: No acute osseous abnormality. Dictated by: Delmer Ennis M.D. on 09/27/2021 at 14:55 Approved by: Delmer Ennis M.D. on 09/27/2021 at 14:56
== END ==
PROVIDERS: PCP Family Medicine; Referring Provider Family Medicine; Visit Provider Family Medicine
DX: R07.81 Pleurodynia (principal)
CPT/HCPCS: 71100

== ENCOUNTER 2021-10-19 08:47 | Emergency (ER) | payer OTHER, SELFPAY ==
[2021-10-19] VITALS (7 sets, daily range): BP systolic 120–136; BP diastolic 79–83; PULSE 66–77; RESP 17–21; TEMP 36.9; O2SAT 95–97; BMI 34.4
--- NOTE | 2021-10-19 09:14 | DI.RAD.S_ITS ---
PROCEDURE: XR CHEST 1V INDICATIONS: chest pain TECHNIQUE: One view of the chest was acquired. COMPARISON: [facility], CR, XR CHEST 2V, 06/25/2020, 17:19. FINDINGS: Surgical changes and devices: None. Lungs and pleura: Mild left basilar atelectasis, improved compared to the prior study on 06/25/2020. Lungs are clear. No pleural effusions or pneumothorax. Mediastinum: Mediastinal contours appear normal. Heart size is normal. Bones and chest wall: No suspicious bony lesions. Overlying soft tissues appear unremarkable. IMPRESSION: 1. No acute cardiopulmonary abnormality. 2. Mild left basilar atelectasis. Dictated by: Arturo Torrez M.D. on 10/19/2021 at 9:48 Approved by: Arturo Torrez M.D. on 10/19/2021 at 9:48
[2021-10-19 09:23] LABS: Add Manual Diff / Slide Review NO; Basophils Absolute Auto 200 /uL (0-100); Basophils Percent Auto 1.3 % (0-2); Eosinophils Absolute Auto 300 /uL (0-450); Hematocrit 42.8 % (41-53); Hemoglobin 14.8 g/dL (13.5-17.5); Lymphocytes Absolute Auto 4700 /uL (1100-4500); Lymphocytes Percent Auto 31.6 % (25-40); Mean Corpuscular HGB Conc 34.7 % (30-36); Mean Corpuscular Volume 89.3 fL (80-100); Monocytes Absolute Auto 1100 /uL (0-900); Monocytes Percent Auto 7.3 % (3-14); Neutrophils Absolute Auto 8600 /uL (1500-7000); Neutrophils Percent Auto 57.8 % (50-75); Red Blood Cell Count 4.79 X10^6/uL (4.5-5.9); Red Cell Distribution Width 13.1 % (11.6-14.8); White Blood Cell Count 14.9 X10^3/uL (4.5-11.0)
[2021-10-19 09:27] LABS: Alanine Aminotransferase 33 IU/L (<50); Albumin 4.4 g/dL (3.5-5.0); Albumin Globulin Ratio 1.5 (1.0-2.8); Alkaline Phosphatase 83 U/L (38-126); Aspartate Aminotransferase 35 IU/L (17-59); BUN Creatinine Ratio 12.7 (6-22); Bilirubin Total 0.3 mg/dL (0.2-1.3); Blood Urea Nitrogen 9 mg/dL (9-20); Calcium 8.9 mg/dL (8.4-10.2); Carbon Dioxide 23 mmol/L (22-32); Chloride 106 mmol/L (98-107); Creatine Kinase 176 U/L (55-170); Estimated Glomerular Filt Rate > 60.0 mL/min (>60); Globulin 2.9 g/dL (1.7-4.1); Glucose 110 mg/dL (70-100); HEMOLYSIS < 15 (0-50); Lipase 97 U/L (23-300); Potassium 3.6 mmol/L (3.4-5.1); Sodium 137 mmol/L (137-145); Total Protein 7.3 g/dL (6.3-8.2)
--- NOTE | 2021-10-19 09:31 | ED_ITS ---
HPI - General Adult General Chief complaint: Dizziness Stated complaint: head pain, dizzy spells Time Seen by Provider: 10/19/21 09:09 Source: patient Mode of arrival: Family Vehicle Limitations: no limitations History of Present Illness HPI narrative: Patient is a 40-year-old otherwise healthy male who is here for evaluation of a couple episodes this morning. He states that he was at work. Started to get some pain in the back of his head and then became lightheaded. It lasted a couple minutes and then completely resolved. This did occur couple different times. Is currently asymptomatic. Over the past week he has had occasional left-sided chest discomfort. Did receive the [employer] COVID vaccine approximately 1 week ago. Related Data Home Medications Medication Instructions Recorded Confirmed ranitidine HCl 75 mg tablet 75 mg PO PRN PRN #0 02/01/17 11/17/20 omeprazole PO 05/05/21 05/05/21 Previous Rx's Medication Instructions Recorded acetaminophen 500 mg capsule 1,000 mg PO Q6H #30 cap 06/05/19 polyethylene glycol 3350 17 gram 17 gram PO DAILY #10 each 06/05/19 oral powder packet (Miralax) meclizine 25 mg tablet 25 mg PO TID PRN #14 tab 06/18/20 ondansetron HCl 4 mg tablet 4 mg PO Q6H #14 tab 06/25/20 (Zofran) oxycodone-acetaminophen 5 mg-325 1 tab PO Q6H PRN #14 tab 06/25/21 mg tablet tamsulosin 0.4 mg capsule 0.4 mg PO DAILY #20 cap 06/25/21 Allergies Allergy/AdvReac Type Severity Reaction Status Date / Time Penicillins [PENICILLINS] Allergy Intermediate Verified 10/19/21 09:24 Review of Systems Constitutional Constitutional: Reports as per HPI and Reports system reviewed and no additional complaints, except as documented Eyes Eyes: Reports system reviewed and no additional complaints, except as documented Cardiovascular Cardiovascular: Reports as per HPI and Reports system reviewed and no additional complaints, except as documented Respiratory Respiratory: Reports as per HPI and Reports system reviewed and no additional complaints, except as documented Gastrointestinal Gastrointestinal: Reports system reviewed and no additional complaints, except as documented Musculoskeletal Musculoskeletal: Reports system reviewed and no additional complaints, except as documented Neurologic Neurologic: Reports system reviewed and no additional complaints, except as documented Psychiatric Psychiatric: Reports system reviewed and no additional complaints, except as documented Hematologic/Lymphatic On Anticoagulants: No Allergic/Immunologic Allergic/Immunologic: Reports system reviewed and no additional complaints, except as documented Patient History Medical History Diverticulosis Nephrolithiasis Obesity Upper respiratory infection Surgical History History of colonoscopy History of tonsillectomy Social History marital status: household members: spouse Smoking Status: Current every day smoker alcohol intake: current substance use type: does not use Smoking Status: Current every day smoker tobacco type: cigarettes alcohol intake frequency: a few times a month Substance Use Type: does not use Exam Initial Vital Signs Initial Vital Signs: Vital Signs Temperature 98.5 F 10/19/21 09:15 Pulse Rate 74 10/19/21 09:15 Respiratory Rate 18 10/19/21 09:15 Blood Pressure 136/83 10/19/21 09:15 Pulse Oximetry 95 10/19/21 09:15 Const General: cooperative, healthy appearing, comfortable, well developed and well groomed HENMS Head: normal to inspection and normocephalic Eyes Pupils: PERRL EOM: EOM intact bilaterally Resp Effort & Inspection: normal respiratory effort Auscultation: clear to auscultation bilaterally Cardio Rate: regular rate Rhythm: regular rhythm GI Inspection: normal to inspection Skin General: no rashes or lesions noted Neuro General: patient alert, patient awake, patient oriented x3 and moves all extremities Cognition: normal cognition Speech: speech normal Extrem General: normal to inspection and capillary refill normal Psych Appearance: grossly normal and well kempt Course Orders Ordered: ED Orders 10/19/21 09:04 Complete Blood Count AUTO DIFF Stat Comprehensive Metabolic Panel Stat Lipase Stat Troponin & CK Cardiac Panel Stat 10/19/21 09:09 EKG-12 Lead Stat 10/19/21 09:14 XR chest 1V Stat Vital Signs Vital signs: Vital Signs - 8 hr 10/19/21 09:15 Temperature 98.5 F Pulse Rate 74 Respiratory Rate 18 Blood Pressure 136/83 Pulse Oximetry 95 Medical Decision Making Lab Data Lab results reviewed: Yes I reviewed the patient's lab results. Result diagrams: 10/19/21 09:04 10/19/21 09:04 Labs: Lab Results 10/19/21 10/19/21 Range/Units 09:04 09:04 WBC 14.9 H (4.5-11.0) X10^3/uL RBC 4.79 (4.5-5.9) X10^6/uL Hgb 14.8 (13.5-17.5) g/dL Hct 42.8 (41-53) % MCV 89.3 (80-100) fL MCH 31.0 (26-34) PG MCHC 34.7 (30-36) % RDW 13.1 (11.6-14.8) % Neut % (Auto) 57.8 (50-75) % Lymph % (Auto) 31.6 (25-40) % [place] % (Auto) 7.3 (3-14) % Eos % (Auto) 2.0 (2-4) % Baso % (Auto) 1.3 (0-2) % Neut # (Auto) 8600 H (7039-8445) /uL Lymph # (Auto) 4700 H (8536-3677) /uL [place] # (Auto) 1100 H (0-900) /uL Eos # (Auto) 300 (0-450) /uL Baso # (Auto) 200 H (0-100) /uL Sodium 137 (137-145) mmol/L Potassium 3.6 (3.4-5.1) mmol/L Chloride 106 (98-107) mmol/L Carbon Dioxide 23 (22-32) mmol/L BUN 9 (9-20) mg/dL Creatinine 0.71 (0.66-1.25) mg/dL Estimated GFR > 60.0 (>60) mL/min BUN/Creatinine Ratio 12.7 (6-22) Glucose 110 H (70-100) mg/dL Calcium 8.9 (8.4-10.2) mg/dL Total Bilirubin 0.3 (0.2-1.3) mg/dL AST 35 (17-59) IU/L ALT 33 (<50) IU/L Alkaline Phosphatase 83 (38-126) U/L Total Creatine Kinase 176 H (55-170) U/L CK-MB (CK-2) 0.93 (<2.37) ng/mL CK-MB (CK-2) Rel Index 0.5 L (1.5-5.0) % Troponin I < 0.012 (0.01-0.034) ng/mL Total Protein 7.3 (6.3-8.2) g/dL Albumin 4.4 (3.5-5.0) g/dL Globulin 2.9 (1.7-4.1) g/dL Albumin/Globulin Ratio 1.5 (1.0-2.8) Lipase 97 (23-300) U/L Imaging Data Chest x-ray: Radiologist's Impression: [address] [address] XRay Report Signed Patient: Alex Wagoner MR#: [id number] : 1980 Acct:[id number] Age/Sex: 40 / M Date of Service: 10/19/21 Loc: ED Accession Number: [id number] ?? Procedure: XR chest 1V Ordering Provider: Karl Casas D.O. PROCEDURE:? XR CHEST 1V ? INDICATIONS:? chest pain ? TECHNIQUE:? One view of the chest was acquired.? ? COMPARISON:? [facility], CR, XR CHEST 2V, 06/25/2020, 17:19. ? FINDINGS:? ? Surgical changes and devices:? None.? ? Lungs and pleura:? Mild left basilar atelectasis, improved compared to the prior study on 06/25/2020.? Lungs are clear.? No pleural effusions or pneumothorax.? ? Mediastinum:? Mediastinal contours appear normal.? Heart size is normal.? ? Bones and chest wall:? No suspicious bony lesions.? Overlying soft tissues appear unremarkable.? ? IMPRESSION:? 1. No acute cardiopulmonary abnormality. 2. Mild left basilar atelectasis. ? ? Dictated by: Arturo Torrez M.D. on 10/19/2021 at 9:48 ? ? Approved by: Arturo Torrez M.D. on 10/19/2021 at 9:48?? ECG Data Attestation: I personally reviewed and interpreted this ECG as follows: Interpretation: Sinus rhythm Ventricular rate is 79 Normal axis Normal QRS Normal QTC Nonspecific ST T wave changes MDM Narrative Medical decision making narrative: Workup here in the emergency department is unremarkable. He does have a le ukocytosis however he just recently received the COVID vaccine. Low suspicion for CVA. Low suspicion for TIA. No ectopy noted on the property assessment monitor. Provided reassurance to the patient. I feel that we can hold on further radiologic studies and lab tests for now. Patient states he would like to return back to work. He was given return precautions. He expressed understanding and agreement. Discharge Plan Departure Patient Disposition: Home Clinical Impression: Atypical chest pain, Episodic lightheadedness Instructions: DI for Dizziness-Nonvertigo Activity Restrictions/Additional Instructions: I recommend that you contact your primary doctor for follow-up. Continue to take all of your medications as directed. Return to the emergency department for any new or worsening symptoms Prescriptions: No Action omeprazole PO 0RF ranitidine HCl 75 MG tablet 75 mg PO PRN PRN (Reason: Indigestion) Qty: 0 0RF oxycodone-acetaminophen 5-325 mg tablet 1 tab PO Q6H PRN (Reason: pain) Qty: 14 0RF tamsulosin 0.4 mg capsule 0.4 mg PO DAILY Qty: 20 0RF acetaminophen 500 mg capsule 1,000 mg PO Q6H Qty: 30 0RF polyethylene glycol 3350 [Miralax] 17 gram powder in packet 17 gram PO DAILY Qty: 10 0RF Rx Instructions: stop if diarrhea meclizine 25 mg tablet 25 mg PO TID PRN (Reason: dizziness) Qty: 14 0RF ondansetron HCl [Zofran] 4 mg tablet 4 mg PO Q6H Qty: 14 0RF Referrals: Susana Wilson MD [Primary Care Provider] -
[2021-10-19 09:38] LABS: Troponin I < 0.012 ng/mL (0.01-0.034)
[2021-10-19 09:42] LABS: CKMB % Relative Index 0.5 % (1.5-5.0); Creatine Kinase MB 0.93 ng/mL (<2.37)
[2021-10-19 10:21] LABS: Platelet Count 233 X10^3/uL (150-400)
== END 2021-10-19 10:39 | disposition home or self-care (01) ==
PROVIDERS: Emergency Provider Emergency Medicine; PCP Family Medicine
DX: R07.89 Other chest pain (principal); R42 Dizziness and giddiness
CPT/HCPCS: 36415; 71045; 80053; 82550; 82553; 83690; 84484; 85025; 93005; 99283; 99284

== ENCOUNTER → 2021-11-22 08:02 | Outpatient (CLI) | payer OTHER, SELFPAY ==
[2021-11-22 11:33] LABS: COVID19 -Nasal RAPID Negative (Negative)
== END ==
PROVIDERS: PCP Family Medicine; Visit Provider Physician Assistant
DX: Z01.812 Encounter for preprocedural laboratory examination (principal); Z20.822 Contact with and (suspected) exposure to COVID-19
CPT/HCPCS: 87635

== ENCOUNTER → 2022-01-27 08:12 | Outpatient (ROUT) | payer OTHER, SELFPAY ==
[2022-01-27 08:46] LABS: D Dimer < 200 ng/mL (<230)
== END ==
PROVIDERS: PCP Family Medicine
DX: R53.83 Other fatigue (principal); U07.1 COVID-19
CPT/HCPCS: 85379

== ENCOUNTER → 2022-11-15 08:09 | Outpatient (CLI) | payer OTHER, SELFPAY ==
--- NOTE | 2022-11-15 | DI.RAD.S_ITS ---
PROCEDURE: FL UPPER GI SERIES INDICATIONS: CHEST PAIN / COUGH COMPARISON: CT KIDNEY URETER BLADDER (KUB), 06/25/2021, 6:20. CT ABDOMEN/PELVIS W/WO CONTRAST, 12/09/2003, 12:26. FINDINGS: KUB: Preprocedural master esthetician film demonstrates a normal bowel gas pattern. No suspicious abdominal calcifications. Visualized solid organ contours appear normal. Bony structures appear unremarkable. Esophagus: Esophageal mucosa is normal on air-contrast views. On single-contrast views, there is normal esophageal peristalsis. No strictures, extrinsic mass effects, or diverticula. No hiatal hernia or elicited gastroesophageal reflux. There is normal transit of a calibrated barium tablet through the esophagus. Stomach: The stomach is normally distensible, with normal rugal fold thickness. No mucosal masses or ulcers. Pylorus and duodenal bulb appear normal in morphology. Duodenal folds are normal in thickness as well. IMPRESSION: Normal upper GI study Dictated by: Gisselle Arango M.D. on 11/15/2022 at 10:25 Approved by: Gisselle Arango M.D. on 11/15/2022 at 10:27
== END ==
PROVIDERS: PCP Family Medicine; Referring Provider Family Medicine; Visit Provider Family Medicine
DX: R05.9 Cough, unspecified (principal); R07.9 Chest pain, unspecified
CPT/HCPCS: 74240